=== PATIENT | female | born 1955 | race Caucasian/White ===

== ENCOUNTER → 2016-11-22 | Outpatient (CLI) | payer BC ==
--- NOTE | 2016-11-22 16:08 | MAMMOGRAPHY REPORT ---
BILATERAL DIGITAL SCREENING MAMMOGRAM TOMOSYNTHESIS WITH CAD: 11/22/2016 CLINICAL HISTORY: Routine screening. Patient has no complaints. TECHNIQUE: Breast tomosynthesis in addition to standard 2D mammography was performed. Current study was also evaluated with a Computer Aided Detection (CAD) system. COMPARISON: Comparison is made to exams dated: 11/19/2015 mammogram, 11/17/2014 mammogram, 07/17/2013 m ammogram, 06/12/2012 mammogram, 05/30/2012 mammogram, and 05/20/2011 mammogram - [facility] nter. BREAST COMPOSITION: There are scattered areas of fibroglandular density in both breasts. FINDINGS: No suspicious mass, architectural distortion or cluster of microcalcifications is seen. IMPRESSION: ACR BI-RADS CATEGORY 1: NEGATIVE There is no mammographic evidence of malignancy. A 1 year screening mammogram is recommended. The pa tient will receive written notification of the results. Approximately 10% of breast cancers are not detected with mammography. A negative mammographic report should not delay biopsy if a clinically suggestive mass is present. Sigrid garcia/oumou:11/22/2016 15:51:55 Rampman: Emiliana REYES)(Denis), [facility] letter sent: Normal 1/2 BI-RADS Code: ACR BI-RADS Category 1: Negative
== END | disposition home or self-care (01) ==
LOC: C.MAMM 07:08
PROVIDERS: ATTEND Family Medicine
DX: Z12.31 Encounter for screening mammogram for malignant neoplasm of breast (principal)

== ENCOUNTER → 2016-12-26 | Outpatient (CLI) | payer BC | END | disposition home or self-care (01) | LOC: C.RDSM 13:22 | PROVIDERS: ATTEND Physical Medicine & Rehabilitation Sports Medicine | DX: M17.12 Unilateral primary osteoarthritis, left knee (principal) ==

== ENCOUNTER 2018-08-22 04:42 | Inpatient (IN) ==
--- NOTE | 2018-07-25 16:21 | PAT Medication Instructions ---
Medication Instructions Date of Service July 25, 2018 Home Medications cholecalciferol (vitamin D3) 1 tab PO QAM cyanocobalamin (vitamin B-12) 500 mcg PO QAM glucosamine-chondroitin [Osteo 2 tab PO QAM rvhunrye-rpk-kxui-folic-vit K1 2 tab PO QAM venlafaxine [Effexor XR] 150 mg PO QAM STOP taking 2 weeks before surgery (or as soon as possible if surgery is within 2 weeks) glucosamine-chondroitin [Osteo 2 tab PO QAM DO NOT take the morning of surgery cholecalciferol (vitamin D3) 1 tab PO QAM cyanocobalamin (vitamin B-12) 500 mcg PO QAM bxzvpics-knr-xsui-folic-vit K1 2 tab PO QAM Take morning of surgery With a small sip of water, OTHERWISE NOTHING TO EAT OR DRINK AFTER MIDNIGHT: venlafaxine [Effexor XR] 150 mg PO QAM Other Notes If you have any questions please call us at [phone] or [phone] or [phone] or [phone]
--- NOTE | 2018-07-26 14:56 | Anesthesiology Consultation ---
Date of Service July 26, 2018 Assessment & Plan (1) Encounter for pre-operative examination: PCP: 07/27/18: medically cleared for surgery- "YES" Patient anxious re: SAB. She states she had ?epidural vs. spinal for childbirth and had subsequent "backaches" for years afterwords. She states she was told by an orthopedist that this was secondary to the neuraxial procedure. Discussed SAB vs. GA. To discuss further AM DOS. Chart Review Chart Review: Acceptable Risk for Surgery and Patient seen in Pre Admission Testing Teaching & Discussion Pre-Anesthesia Teaching/Discussion Notes: Instructed NPO after midnight before surgery,except medications with 15 cc of water. Medication instructions provided according to the PAT guidelines. History Surgery Operation Date: 08/22/18 07:00 Proposed Procedures p Left Total Knee Arthroplasty - Lucien Muro MD Height/Weight Height: 5 ft 1 in Weight: 102 kg Allergies Allergy/AdvReac Type Severity Reaction Status Date / Time adhesive tape AdvReac Unknown skin Verified 07/10/18 07:41 irritation Medications Home Medications Medication Instructions Recorded Confirmed Last Taken cholecalciferol (vitamin D3) 1 tab PO QAM 07/10/18 07/10/18 Unknown [Vitamin D3] cyanocobalamin (vitamin B-12) 500 mcg PO QAM 07/10/18 07/10/18 Unknown [Vitamin B-12] glucosamine-chondroitin [Osteo 2 tab PO QAM 07/10/18 07/10/18 Unknown Bi-Flex] zinymhqq-unt-hytx-folic-vit K1 2 tab PO QAM 07/10/18 07/10/18 Unknown [Centrum Chewables] venlafaxine [Effexor XR] 150 mg PO QAM 07/10/18 07/10/18 Unknown Past Medical History Medical History Anxiety Depression Morbid obesity Exercise / Class Metabolic Activity III < 4 Walking/Shop/Light housework Past Surgical History Surgical History Hx of Achilles tendon repair LEFT Hx of cervical discectomy Hx of gastric bypass 2005 Past Anesthesia History No Hx of Anesthesia Complications and No Family Hx of Anesthesia Complications History of PONV No Hx of PONV and No Hx of Motion Sickness Social History Smoking Status: Former smoker Do You Dip or Chew Tobacco: No Smoking End Date: QUIT 45 YEARS AGO Hx Alcohol Use: Yes Alcohol type: wine and hard liquor alcohol intake frequency: holidays/special occasions only Hx Substance Use: No Review of Systems Patient denies chest pain, shortness of breath, reflux, cough, wheezing, palpitations. Physical Exam Vital Signs VITALS BP 131/84 P 58 TEMP 97.7 SP02 99%RA RESP 18 PHYSICAL Full neck and c-spine range of motion. Full TMJ range of motion. TMD 3.5 finger breaths Mallampati Score 2 Dentition: upper front sides permanent bridge Lungs: clear throughout to auscultation Cardiac: regular rate and rhythm, no murmurs noted Spine: normal Carotid arteries: negative bruit Extremities: no edema Testing Electrocardiogram Date: 07/27/18 NSR at 63bpm. NS TWA. Chest X-Ray Date: 07/27/18 Findings: + NAD Laboratory Results 07/26/18 15:02 07/26/18 15:02 Blood Type A Positive 07/26/18 15:02 Antibody Screen NEGATIVE 07/26/18 15:02 PT 10.2 Seconds (9.0-12.0) 07/26/18 15:02 INR 1.0 (0.9-1.1) 07/26/18 15:02 APTT 26.2 Seconds (21.0-31.0) 07/26/18 15:02 Urine Color Yellow 07/26/18 Unknown Urine Appearance Clear (Clear) 07/26/18 Unknown Urine pH 5.0 (4.5-7.5) 07/26/18 Unknown Ur Specific [place] 1.024 (1.000-1.030) 07/26/18 Unknown Urine Protein Negative (Negative) 07/26/18 Unknown Urine Glucose (UA) Negative (Negative) 07/26/18 Unknown Urine Ketones Negative (Negative) 07/26/18 Unknown Urine Nitrite Negative (Negative) 07/26/18 Unknown Ur Leukocyte Esterase Trace (Negative) H 07/26/18 Unknown Urine WBC (Auto) 5-10 /hpf (0-5) H 07/26/18 Unknown Urine RBC (Auto) 0-4 /hpf (0-4) 07/26/18 Unknown U Hyaline Cast (Auto) 1-5 /lpf (0-5) 07/26/18 Unknown U Epithel Cells (Auto) >30 /lpf (0-5) H 07/26/18 Unknown Urine Bacteria (Auto) Negative (Negative) 07/26/18 Unknown
--- NOTE | 2018-07-26 15:29 | XRay Report ---
XR chest Pre-admission PA/Lat HISTORY: 63 years-old Female pat preoperative exam. No acute chest complaints COMPARISON: None available TECHNIQUE: PA and lateral views of the chest FINDINGS: Cardiomediastinal and hilar silhouettes are within normal limits. There is no pneumothorax, pleural e ffusion or overt pulmonary edema. Linear subsegmental atelectasis/scarring about the inferior segment lingula. Degenerative changes of the shoulders and spine. IMPRESSION: No acute process. The above report was generated using voice recognition software. It may contain grammatical, syntax o r spelling errors. Electronically signed by: Collin Pickett M.D. 07/26/2018 3:28 PM
[2018-07-26 15:59] LABS: Basophils # (auto) 0.04 K/uL (0-0.2); Basophils % (auto) 0.8 %; Eosinophils # (auto) 0.09 K/uL (0-0.5); Eosinophils % (auto) 1.8 %; Hematocrit (blood only) 39.6 % (37-47); Hemoglobin 13.7 g/dL (12.0-16.0); Immature Granulocytes # (auto) 0.01 K/uL (0.00-0.02); Immature Granulocytes % (auto) 0.2 %; Lymphocytes # (auto) 2.12 K/uL (1.2-3.4); Lymphocytes % (auto) 41.8 %; Mean Corpuscular Hgb Conc 34.6 g/dL (32-36); Mean Corpuscular Volume 89.6 fL (80-100); Mean Platelet Volume 11.3 fL (7.4-10.4); Monocytes # (auto) 0.48 K/uL (0.11-0.59); Monocytes % (auto) 9.5 %; Neutrophils # (auto) 2.33 K/uL (1.4-6.5); Neutrophils % (auto) 45.9 %; Platelet Count 237 K/uL (130-400); RDW Coefficient of Variation 13.9 % (11.5-14.5); RDW Standard Deviation 45.6 fL (36.4-46.3); Red Blood Count 4.42 M/uL (4.2-5.4); White Blood Count 5.07 K/uL (4.8-10.8)
[2018-07-26 16:05] LABS: Appearance Urine Clear (Clear); Bacteria Urine Automated Negative (Negative); Bilirubin Urine Negative (Negative); Blood Urine Negative (Negative); Color Urine Yellow; Epithelial Cell Urine Auto >30 /lpf (0-5); Glucose Urine UA Negative (Negative); Ketones Urine Negative (Negative); Leukocyte Esterase Urine Trace (Negative); Nitrite Urine Negative (Negative); Protein Urine Negative (Negative); RBC Urine Automated 0-4 /hpf (0-4); Specific Gravity Urine 1.024 (1.000-1.030); Urobilinogen Urine Negative (Negative)
[2018-07-26 16:07] LABS: BUN Creatinine Ratio 17.2 (10-20); Calcium 9.2 mg/dl (8.5-10.1); Creatinine Clr Calc Pharmacy 69.4 ml/min; Est GFR (African American) 77.8; Est GFR (Non-African American) 67.1; Potassium 3.9 mmol/L (3.5-5.1)
[2018-07-26 16:12] LABS: Partial Thromboplastin Time 26.2 Seconds (21.0-31.0); Prothrombin Time 10.2 Seconds (9.0-12.0)
[2018-07-26 16:18] LABS: Mucus Urine Present (None Prsent)
--- NOTE | 2018-08-03 22:30 | History and Physical Report ---
DATE OF ADMISSION: 08/22/2018 DATE OF SURGERY: 08/22/2018 CHIEF COMPLAINT: Left knee pain. HISTORY OF PRESENT ILLNESS: This is a 63-year-old white female who presents to the office with complaints longstanding history of bilateral knee pain, left greater than right. It has been ongoing for over 4 years. Pain has become worse with time. Pain is now affecting her ADLs. Worse with weightbearing. No catching or locking. No buckling. She does note frequent night pain, occasional effusions. She is frustrated at her lack of ability to do regular activity without pain. No numbness or tingling. She has tried activity modification, corticosteroid injections, viscosupplementation injections, and oral anti-inflammatories without lasting improvement. Preoperative imaging has been obtained. She elects to proceed with left total knee arthroplasty in hopes of alleviating her discomfort. PAST MEDICAL HISTORY: Significant for anxiety and depression, osteoarthritis, obesity, vitamin D deficiency, and elevated parathyroid hormone. PREVIOUS SURGERIES: Achilles tendon surgery x3, neck surgery, gastric bypass in 2003, low back surgery in 1979, colonoscopy in 2016. FAMILY HISTORY: Significant for osteoarthritis, breast cancer, depression, and heart disease. ALLERGIES: KNOWN ALLERGY TO ADHESIVE BANDAGES and EKG STICKERS. NKDA. CURRENT MEDICATIONS: Effexor XR 150 mg daily, multivitamin daily, Osteo Bi-Flex daily, vitamin B12 daily, vitamin D3 daily, Voltaren topical gel p.r.n. SOCIAL HISTORY: The patient is . No tobacco use, occasional ETOH use. REVIEW OF SYSTEMS: A total of 10 systems are reviewed and are significant only for above stated conditions. PHYSICAL EXAMINATION: GENERAL: Well-developed, well-nourished middle aged white female in no acute distress. Sitting in a chair. Alert and oriented. SKIN: Warm and dry with good turgor. No rashes or lesions. No ecchymosis or erythema. HEENT: Normocephalic, atraumatic. Eyes PERRLA, EOMI. Nares patent bilaterally without turbinate enlargement. Oropharynx without erythema or exudate. No lesions noted. Uvula midline. Oral mucosa moist. Fair dentition. Dental bridges are noted. LUNGS: Clear to auscultation bilaterally. No crackles, rhonchi or wheezing. Good air movement. ABDOMEN: Obese. Bowel sounds present x4, soft, nontender. No organomegaly. No masses. HEART: RRR. No MGR. MUSCULOSKELETAL: Left knee evaluation reveals no intra-articular effusion. Obese extremity. Varus alignment. Full terminal extension. Flexion to greater than 100 degrees. Strength is 5/5 with fair quad tone. There is focal discomfort with palpation of the medial and lateral joint lines. Medial was worst. She has peripatellar discomfort with palpation as well. Crepitus is palpable with motion. Stable collateral ligaments. No defect in the patellar tendon or quadriceps tendon. Ambulatory with an antalgic gait. NEUROLOGIC: Cranial nerves II through XII are intact. Gross sensation is intact across the lower extremities by soft touch. Peripheral pulses are 2+. DATA: Radiographic imaging previously obtained shows tricompartmental arthritis, worst in the medial compartment and varus alignment. Periarticular osteophytes and subchondral sclerosis are present. The bone scan previously obtained shows osteoarthritic changes in all compartments. IMPRESSION: Left knee end-stage degenerative joint disease. PLAN: Postoperative prescriptions for Percocet and Coumadin will be provided at discharge from the hospital. Anticipate discharge to home with home health services. She already has an appointment to see her PCP, Dr. Figueroa for medical clearance. Preoperative lab work, EKG, and chest x-ray have been ordered. She already has access to a walker and cane. Informed written consent will be obtained the morning of surgery.
[2018-08-22] MEDS ORDERED: CEFAZOLIN 2000MG 2,000 MG/15 ML SYR IV SCH (06:00)
[2018-08-22] MEDS ORDERED: TRANEXAMIC ACID 1,000 MG **IV Pre-op IV SCH (06:00)
[2018-08-22] MEDS ORDERED: ROPIVACAINE 0.5% HCL/PF 150 MG, BUPIVACAINE 0.5% MPF 30 ML, EPINEPHrine 0.15 MG, Ketoro... INFIL SCH (06:00)
[2018-08-22] MEDS ORDERED: LR 500ML BOLUS, THEN 15ML/HR IV SCH (06:00)
[2018-08-22] MEDS ORDERED: LR 60ML/HR IV SCH (06:00)
[2018-08-22] MEDS ORDERED: BUPIVACAINE 0.5 % 5 MG/1 ML PF 10ML VIAL ONE (06:27)
[2018-08-22] MEDS ORDERED: ROPIVACAINE 0.5% 5 MG/ML 30 ML VIAL ONE (06:27)
[2018-08-22] MEDS ORDERED: KETAMINE HCL INJ 50 MG/ML 10 ML VIAL ONE (06:28)
[2018-08-22] MEDS ORDERED: MIDAZOLAM HCL 1 MG/ML 2ML VIAL ONE (06:28)
[2018-08-22] MEDS ORDERED: PHENYLEPHRINE 100MCG/ML 5ML SYR IV PRN (06:30)
[2018-08-22] MEDS ORDERED: ePHEDrine sulfate 50 MG/ML AMP IV PRN (06:30)
[2018-08-22] MEDS ORDERED: fentaNYL citrate 100 MCG/2 ML VIAL IV PRN (06:30)
[2018-08-22] MEDS ORDERED: HYDROmorphone INJ 1 MG/ML SYRINGE IV PRN (06:30)
[2018-08-22] MEDS ORDERED: PROMETHAZINE HCL 12.5 MG in SODIUM CHLORIDE 0.9% 50 ML IV PRN (06:30)
[2018-08-22] MEDS ORDERED: ONDANSETRON INJ 2 MG/ML 2 ML VIAL IV PRN ×2 (06:30→09:08)
[2018-08-22] MEDS ORDERED: ATROPINE SULFATE 0.1 MG/ML 10ML SYR IV PRN (06:30)
--- NOTE | 2018-08-22 06:30 | History & Physical Bridge Note ---
Date of Service August 22, 2018 History & Physical Bridge Note I have examined the patient, reviewed the History & Physical and in the interval since the performance of the History & Physical I have noted the following changes of clinical significance: consent obtained.no changes noted
[2018-08-22] MEDS ORDERED: GLYCOPYRROLATE 0.2 MG/ML VIAL ONE (06:32)
[2018-08-22] MEDS ORDERED: ONDANSETRON INJ 2 MG/ML 2 ML VIAL ONE (06:32)
[2018-08-22] MEDS ORDERED: PROPOFOL IV EMULSION 10 MG/ML 20 ML VIAL IV ONE ×2 (06:32→08:07)
[2018-08-22] MEDS ORDERED: DEXAMETHASONE SOD INJ 4 MG/ML VIAL ONE (06:32)
[2018-08-22] MEDS ORDERED: LIDOCAINE HCL 2% 2 ML VIAL/AMP(20MG/ML) INFIL ONE (06:32)
[2018-08-22] MEDS ORDERED: POVIDONE-IODINE OP SOLN 30 ML BTL ONE (06:36)
[2018-08-22] MEDS ORDERED: ORTHO JOINT ANESTHETIC ONE (06:36)
[2018-08-22] MEDS ORDERED: CEFAZOLIN 250 MG/ML 1 GM VIAL ONE (07:06)
[2018-08-22] MEDS ORDERED: SODIUM CHLORIDE 0.9% INJ 10 ML VIAL ONE (07:06)
[2018-08-22] MEDS ORDERED: CEFAZOLIN 1000MG 1,000 MG/7.5 ML SYR IV ONE (07:32)
--- NOTE | 2018-08-22 08:23 | Post Operative Brief Note ---
Immediate Post Op Note v1 Date of Surgery August 22, 2018 Pre & Post Diagnosis Operation Date: 08/22/18 07:00 Pre-Op Diagnosis: Left Knee End-Stage Degenerative Joint Disease Post-Op Diagnosis: Left Knee End-Stage Degenerative Joint Disease Procedure Operation Date: 08/22/18 07:00 Actual Procedures p Left Total Knee Arthroplasty(Left) - Lucien Muro MD Surgeon Lucien Muro MD Guidance Adviser [facility] Estimated Blood Loss 25 Findings Consistent with Post-Op Diagnosis
--- NOTE | 2018-08-22 08:30 | Operative Report ---
Post Operative Report Pre & Post Diagnosis Operation Date: 08/22/18 07:00 Pre-Op Diagnosis: Left Knee End-Stage Degenerative Joint Disease Post-Op Diagnosis: Left Knee End-Stage Degenerative Joint Disease Procedure Operation Date: 08/22/18 07:00 Actual Procedures p Left Total Knee Arthroplasty(Left) - Lucien Muro MD Surgeon TANISHA Muro MD Senior Cost Analyst [employer] Estimated Blood Loss 25 Findings Consistent with Post-Op Diagnosis Specimens see operative report Drains none Complications none Disposition Accompanied Patient To Recovery: Yes Disposition: Recovery Room Indications This 63-year-old white female presented to the office with complaints of intractable left knee pain. She had tried conservative care, including activity modification, injection therapy, and oral anti-inflammatories, without improvement. She elected to proceed with surgical intervention after being educated about potential risks and outcomes. Preoperative imaging was obtained. Description of Procedure Patient was administered a spinal anesthetic and then was taken to the operating room where she received sedation. She was prepped and draped in the usual s terile fashion. Please see Dr. Muro's operative report for specifics of the procedure. I was present for the entire case from initial patient positioning through final. Assistance was provided in tissue retraction, hemostasis, trial implant placement, final implant placement, and final wound closure. Patient was taken to the recovery room in satisfactory condition. I attest to the content of the Intraoperative Record and any orders documented therein. Any exceptions are noted below.
--- NOTE | 2018-08-22 08:52 | Anesthesiology Progress Note ---
Date of Service August 22, 2018 Anesthesia Post Procedure Vital Signs Vital Signs: Temp Pulse Pulse Resp BP BP Pulse Ox 08/22/18 08:45 72 19 110/74 98 08/22/18 08:35 76 14 113/73 100 08/22/18 08:29 36.6 C 77 18 109/78 96 08/22/18 05:38 36.7 C 82 20 140/97 97 Pain Intensity Left Knee: Pain Intensity: 0 Transfer of Care Handoff Completed per policy Notes Mental Status: alert / awake / arousable Patient Amnestic to Procedure: Yes Nausea / Vomiting: adequately controlled Pain: adequately controlled Airway Patency, RR, SpO2: stable & adequate BP & HR: stable & adequate Neuraxial Anesthesia: was administered and sensory block is resolving Anesthetic Complications: no major complications apparent Notes: Awake, doing well, VSS.
--- NOTE | 2018-08-22 09:02 | XRay Report ---
XR knee LT 2V routine CLINICAL HISTORY: Surgical Post Op postoperative COMPARISON: None. DISCUSSION: Anatomic alignment post total left knee arthroplasty. Good contact between prosthetic and underlying bone. Expected postoperative soft tissue change. IMPRESSION: Anatomic alignment post total left knee arthroplasty. The above report was generated using voice recognition software. It may contain grammatical, syntax or spelling errors. Electronically signed by: Tony Montano M.D. 08/22/2018 9:01 AM
--- NOTE | 2018-08-22 09:03 | Operative Report ---
DATE OF OPERATION: 08/22/2018 PREOPERATIVE DIAGNOSIS: Osteoarthritis, left knee. POSTOPERATIVE DIAGNOSIS: Osteoarthritis, left knee. SURGEON: Dr. Muro and Mark Espino PA-C. OPERATION PERFORMED: Cemented left total knee replacement. PERIOPERATIVE SITUATION: The patient has been followed for years with bilateral knee osteoarthritis with physical exam, x-ray and MRI scans showing advancing disease with significant disease in both the medial, lateral and patellofemoral compartments. At this point in time, she has failed conservative management and is requesting total knee replacement. SURGEON: Dr. Muro. CRITICAL CARE PARAMEDIC: Mark Espino PA-C. No resident or fellow available. DESCRIPTION OF PROCEDURE: The patient appropriately identified, site verified, consent verified. Antibiotics confirmed as being given. The left lower extremity was prepped and draped in usual routine fashion with tourniquet inflated to 300 mmHg after exsanguination of limb with a rubber Esmarch bandage. The anterior exposure of the femur was then carried out. Blunt dissection carried down to the fascia. This joint was then opened, arthrotomy performed. Synovectomy completed, osteophytes resected. Menisci resected. Cruciates resected after the drill hole made on the distal femur, tibia subluxated, bone remaining remnants of menisci excised. Distal femur resected 12 mm, proximal tibia resected 4 mm, the extension gap was excellent. The femur was sized between a 2.5 and a 2, was measured 2.5, cut 2.5. There was no notching. There was no major overstuffing from anterior to posterior. Flexion gap was then checked. It was excellent. Box cut was then made and the size 2.5 fit well. The tibia was then broached and reamed to 2.5 and reduction with a size 10 mm posterior cruciate substituting 2.5 tray revealed the knee to be very stable. The patella tracked slightly laterally. It should be mentioned there was fair amount of incarceration to the distal extensor mechanism. This was all appropriately released. Once this was carried out, the patella tracked well. Patella was sized to a 38. Appropriate resection made leaving 15 mm. Seating holes made and the trial tracked well. The knee was then injected with Orthomix 2 syringes posteriorly and all around the margin of the incision and then the musculature and capsule around the joint. Once this was all performed, all the trial implants were removed. The wound irrigated with Betadine and Pulsavac and then the permanent cemented in position, tibia, femur and patella in that order. After 12 minutes, the tourniquet deflated. Minor bleeding points controlled with the electrocautery. Estimated blood loss was only about 25 mL when the tourniquet was deflated. Once the cement was all firm 14 minutes, the trial spacer was removed. There was no cement removal that was required. The knee was irrigated with Betadine and then the permanent liner seated. The knee reduced and then closed in 30-40 degrees of flexion with #2 Vicryl for the capsule, 2-0 Vicryl for the subcutaneous layer and stainless steel clips for skin. The patient had a high BMI. She will have a Prevena, it is medically necessary. DVT prophylaxis with Coumadin. EBL 25 mL. Pathology pending on bone. SUMMARY OF IMPLANTS: Size 2.5 posterior cruciate substituting femur, size 2.5 mobile bearing tray tibia, size 2.5 spacer 10 mm thick posterior cruciate substituting oval dome 3 peg patella size 38 and 2 bags of [place] G cement. I attest to the content of the Intraoperative Record and any orders documented therein. Any exception s are noted below.
[2018-08-22] MEDS ORDERED: DiphenhydrAMINE HCL 50 MG/ML VIAL IV PRN (09:08)
[2018-08-22] MEDS ORDERED: HYDROmorphone INJ 0.5 MG/0.5 ML SYR IV PRN (09:08)
[2018-08-22] MEDS ORDERED: ALUMINUM/MAGNESIUM SUSP 30 ML UDC PO PRN (09:08)
[2018-08-22] MEDS ORDERED: NALOXONE HCL 0.4 MG/1 ML VIAL/CARP IV PRN (09:08)
[2018-08-22] MEDS ORDERED: OXYCODONE HCL IR 5 MG TAB (IMMEDIATE RELEASE) PO PRN (09:08)
[2018-08-22] MEDS ORDERED: MAGNESIUM HYDROXIDE SUSP 30 ML UDC PO PRN (09:08)
[2018-08-22] MEDS ORDERED: METOCLOPRAMIDE HCL INJ 5 MG/ML 2 ML VIAL IV PRN (09:08)
[2018-08-22] MEDS ORDERED: BISACODYL 10 MG SUPP PR PRN (09:08)
[2018-08-22] MEDS ORDERED: SODIUM CHLORIDE 0.9% 1000ML 1,000 ML IV SCH (09:30)
[2018-08-22] MEDS: MULTIVITAMIN TAB PO SCH (10:19)
[2018-08-22] MEDS: KETOROLAC 30 MG/ML VIAL IV SCH ×3 (10:19→21:37)
[2018-08-22] MEDS: VENLAFAXINE HCL XR 150 MG CAPXR PO SCH (10:19)
[2018-08-22] MEDS: DOCUSATE SODIUM 100 MG CAP PO SCH ×2 (10:19→21:37)
[2018-08-22] MEDS: ORTHO WARFARIN NOMOGRAM SCH (10:32)
--- NOTE | 2018-08-22 11:37 | Progress Note ---
DATE: 08/22/2018 SUBJECTIVE: Postop check: Status post left total knee replacement. The patient is sitting up in a chair having no issues, eating breakfast. She denies nausea, vomiting, chest pain, shortness of breath, fever, or chills. Neurovascular check: Femoral sciatic nerve is normal. Wound dressing clean, dry, and intact. Postop x-rays look excellent. ASSESSMENT: Doing well. Continue with postoperative care in pathway, physical therapy, occupational therapy, discharge tomorrow.
--- NOTE | 2018-08-22 12:23 | Discharge Summary ---
CHIEF COMPLAINT: Left knee pain. HISTORY OF PRESENT ILLNESS: The patient is admitted for elective left total knee replacement. Hospital course has been uneventful. She is up eating and drinking, voiding and no issues. Pain is well managed. Vital signs are stable. She is afebrile. Postop x-rays look excellent. The patient is 63 years old. She has had chronic knee pain and has been admitted for an elective knee replacement. PAST MEDICAL HISTORY: Remarkable for anxiety, depression, osteoarthritis, obesity, vitamin D deficiency and elevated parathyroid hormone. PAST SURGICAL HISTORY: Include multiple Achilles tendon surgeries, neck surgery, gastric bypass, low back surgery, colonoscopies. FAMILY HISTORY: Remarkable for osteoarthritis, breast cancer, depression, heart disease. ALLERGIES: ADHESIVE BANDAGES AND EKG STICKERS. No drug allergies. PREADMISSION MEDICATIONS: Include Effexor, multivitamin, Osteo Bi-Flex, vitamin B, vitamin D, Voltaren topical gel. She will discontinue the topical gel. She will continue all of her other medication. She will have p.r.n. pain medications, see prescription and Coumadin to keep INR 1.8-2.2, discharged on 4 mg if INR is 1.5 or less. SOCIAL HISTORY: Reveals she is . No tobacco or alcohol use. REVIEW OF SYSTEMS: Reveals no chest pain, shortness of breath, fever, chills, nausea, vomiting or headache. ASSESSMENT AND PLAN: Doing well status post left total knee replacement. We will discharge to home tomorrow. Will follow up in 2 weeks for staple removal. See Coumadin recommendations above.
[2018-08-22] MEDS: ACETAMINOPHEN 500 MG TAB PO SCH ×2 (14:16→21:37)
[2018-08-22] MEDS: CEFAZOLIN 2000MG 2,000 MG/15 ML SYR IV SCH ×2 (14:16→22:32)
[2018-08-22] MEDS ORDERED: TRANEXAMIC ACID 1,000 MG in 0.9 % SODIUM CHLORIDE 100 ML IV SCH (14:30)
[2018-08-22] MEDS ORDERED: WARFARIN SOD 5 MG TAB PO SCH (16:00)
[2018-08-22] MEDS ORDERED: SENNA 8.6 MG TAB PO SCH (21:00)
[2018-08-23] MEDS: ACETAMINOPHEN 500 MG TAB PO SCH (05:18)
[2018-08-23] MEDS: KETOROLAC 30 MG/ML VIAL IV SCH (05:18)
[2018-08-23 06:41] LABS: Hematocrit (blood only) 32.7 % (37-47); Hemoglobin 11.3 g/dL (12.0-16.0); Mean Corpuscular Hgb Conc 34.6 g/dL (32-36); Mean Corpuscular Volume 88.4 fL (80-100); Mean Platelet Volume 10.8 fL (7.4-10.4); Platelet Count 181 K/uL (130-400); RDW Standard Deviation 45.4 fL (36.4-46.3); White Blood Count 7.95 K/uL (4.8-10.8)
[2018-08-23 06:51] LABS: INR 1.2 (0.9-1.1); Prothrombin Time 12.4 Seconds (9.0-12.0)
[2018-08-23 07:19] LABS: BUN Creatinine Ratio 19.1 (10-20); Calcium 8.4 mg/dl (8.5-10.1); Creatinine Clr Calc Pharmacy 59.6 ml/min; Est GFR (African American) 64.7; Est GFR (Non-African American) 55.8; Potassium 3.9 mmol/L (3.5-5.1)
[2018-08-23] MEDS: DOCUSATE SODIUM 100 MG CAP PO SCH (07:21)
[2018-08-23] MEDS: MULTIVITAMIN TAB PO SCH (07:21)
[2018-08-23] MEDS: VENLAFAXINE HCL XR 150 MG CAPXR PO SCH (07:21)
[2018-08-23] MEDS ORDERED: dexAMETHasone 10 MG in SYRINGE 0 ML IV SCH (08:00)
[2018-08-23] MEDS: ORTHO WARFARIN NOMOGRAM SCH (08:26)
--- NOTE | 2018-08-23 09:56 | Orthopedic Progress Note ---
Date of Service August 23, 2018 Assessment & Plan (1) S/P total knee arthroplasty: PT/OT this morning. Dressing was changed by me this morning. Prevena wound VAC was applied. EMY hose were also applied. Ready for discharge to home this morning. She will have outpatient laboratory services. Patient did request a prescription for Tylenol 3 instead of Percocet. She states it works better. This was provided. Prescription for Coumadin 2mg was also provided. Follow-up in the office on August 30 for removal of the wound VAC. She also has an appointment on the staple removal. Continue with ice, elevation, and use of EMY hose for edema control. Call the office with any other concerns. Subjective Patient is seen in her room this morning. She denies any pain. States she has not required any pain medication other than Tylenol. She has been up out of bed and has been ambulating in the hallway. She feels ready to no other complaints at this point. No chest pain, shortness of breath, nausea, vomiting, or abdominal pain. She states she has less knee pain now than prior to surgery. Review of Systems Review of Systems: Unchanged from initial admission. Physical Exam Physical Exam: General: Well-developed, well-nourished, middle-aged white female, in no acute distress. Sitting in a chair. Alert and oriented. She was just ambulating in the [place] with her walker. Skin: Dressings are intact. Upon removal, healing surgical incision on the left knee. [place] are intact. Wound edges are well approximated. Scant drainage on her dressings. No active bleeding. Expected postoperative ecchymosis and edema. Musculoskeletal: Patient has been ambulatory in the [place] using her walker and knee immobilizer. She is able to perform a straight leg raise. Flexion to around 75 degrees when seated. Intact motor function to the ankle and toes. Neurologic: Gross sensation is intact across the left leg by soft touch. Peripheral pulses are 2+. INR is 1.2 this morning. H&H are stable at 11.3 and 32.7. Results & Data Vital Signs (Past 12 Hours) Vital Signs Temp Pulse Pulse Resp BP BP Pulse Ox 08/23/18 07:37 36.7 C 64 19 126/68 98 08/23/18 04:17 36.8 C 55 L 16 109/71 97 08/22/18 23:15 36.8 C 74 18 103/60 93
--- NOTE | 2018-08-23 10:17 | Anesthesiology Progress Note ---
Date of Service August 23, 2018 Anesthesia Post Procedure Vital Signs Vital Signs: Temp Pulse Pulse Resp BP BP Pulse Ox 08/23/18 07:37 36.7 C 64 19 126/68 98 08/23/18 04:17 36.8 C 55 L 16 109/71 97 08/22/18 23:15 36.8 C 74 18 103/60 93 08/22/18 16:14 36.6 C 65 16 113/72 94 08/22/18 12:00 65 16 122/79 99 08/22/18 11:27 60 16 126/74 99 08/22/18 10:23 57 L 16 132/78 98 Pain Intensity Left Knee: Pain Intensity: 0 Notes Mental Status: alert / awake / arousable and participated in evaluation Patient Amnestic to Procedure: Yes Nausea / Vomiting: adequately controlled Pain: adequately controlled Airway Patency, RR, SpO2: stable & adequate BP & HR: stable & adequate Hydration State: stable & adequate Neuraxial Anesthesia: was administered and sensory block resolved Anesthetic Complications: no major complications apparent
[2018-08-23] MEDS ORDERED: WARFARIN SOD 5 MG TAB PO SCH (16:00)
== END 2018-08-23 12:04 | disposition home or self-care (01) | DRG 470 ==
LOC: ASU 04:42 → 3E 09:23

== ENCOUNTER 2018-08-27 09:27 | Inpatient (IN) ==
[2018-08-27] MEDS ORDERED: SODIUM CHLORIDE 0.9% 500 ML IV SCH (09:45)
[2018-08-27 10:19] LABS: Hematocrit (blood only) 20.5 % (37-47); Hemoglobin 7.1 g/dL (12.0-16.0); Mean Corpuscular Hgb Conc 34.6 g/dL (32-36); Mean Corpuscular Volume 89.1 fL (80-100); Mean Platelet Volume 10.9 fL (7.4-10.4); Platelet Count 226 K/uL (130-400); RDW Coefficient of Variation 14.1 % (11.5-14.5); RDW Standard Deviation 45.8 fL (36.4-46.3); White Blood Count 11.02 K/uL (4.8-10.8)
[2018-08-27 10:23] LABS: Albumin Level 2.2 gm/dl (3.4-5.0); Calcium 7.9 mg/dl (8.5-10.1); Creatinine Clr Calc Pharmacy 56.6 ml/min; Est GFR (African American) 59.3; Est GFR (Non-African American) 51.1; Potassium 4.4 mmol/L (3.5-5.1)
[2018-08-27 10:26] LABS: Albumin Globulin Ratio 0.7 (0.9-2); Bilirubin,Total 0.6 mg/dl (0.2-1); Partial Thromboplastin Ratio 1.3; Partial Thromboplastin Time 35.4 Seconds (21.0-31.0); Prothrombin Time 65.3 Seconds (9.0-12.0); Total Protein 5.2 gm/dl (6.4-8.2)
[2018-08-27 10:30] LABS: Basophils # (auto) 0.01 K/uL (0-0.2); Basophils % (auto) 0.1 %; Eosinophils # (auto) 0.01 K/uL (0-0.5); Eosinophils % (auto) 0.1 %; Immature Granulocytes # (auto) 0.12 K/uL (0.00-0.02); Immature Granulocytes % (auto) 1.1 %; Lymphocytes # (auto) 1.55 K/uL (1.2-3.4); Lymphocytes % (auto) 14.1 %; Monocytes # (auto) 0.55 K/uL (0.11-0.59); Neutrophils # (auto) 8.78 K/uL (1.4-6.5); Neutrophils % (auto) 79.6 %; RBC Morphology Unremarkable
[2018-08-27] MEDS ORDERED: SODIUM CHLORIDE 0.9% 250 ML IV PRN ×2 (10:33→14:29)
[2018-08-27 10:36] LABS: INR 7.4 (0.9-1.1)
[2018-08-27] MEDS ORDERED: PROTHROMBIN COMP CONC- KCENTRA 5,000 UNITS in SYRINGE 0 ML IV STA (10:39)
[2018-08-27] MEDS ORDERED: PHYTONADIONE 10 MG in SODIUM CHLORIDE 0.9% 50 ML IV ONE (10:40)
[2018-08-27] MEDS ORDERED: FAMOTIDINE 20MG IV PUSH 20 MG/5 ML SYR IV STA (10:45)
--- NOTE | 2018-08-27 11:09 | Emergency Department Note ---
Entered by Lissa Alaniz acting as a scribe for Guero Field DO History of Present Illness General Time Seen by Provider: 08/27/18 09:36 Source: patient and other (nursing staff) History of Present Illness Provider complaint: rectal bleeding Onset (ago): day(s) (last night) Location: buttocks (rectum) Quality: + other (bleeding) Associated symptoms: + weakness and + other (dizzy); no nausea/vomiting The patient is a 63 year old female who presents to the Emergency Department with complaints of rectal bleeding beginning last night. Per nursing staff, the patient had right knee surgery 5 days ago and is on Coumadin. She states that she was placed on the Coumadin after the knee surgery and states that she stopped it yesterday. The patient states that yesterday she was dizzy and weak after she started to pass large clots. The patient states that she got so weak that she was unable to stand. The patient reports that she had the rectal bleeding before the weakness. The patient denies a history of bleeding issues or blood transfusions. The patient denies any nausea or vomiting. She denies a history of diabetes, hypertension, and a heart attack. Home Medications Home Medications Medication Instructions Recorded Confirmed Type Centrum Chewables 2 tab PO QAM 07/10/18 08/27/18 History cholecalciferol (vitamin D3) 1 tab PO QAM 07/10/18 08/27/18 History [Vitamin D3] cyanocobalamin (vitamin B-12) 500 mcg PO QAM 07/10/18 08/27/18 History [Vitamin B-12] venlafaxine [Effexor XR] 150 mg PO QAM 07/10/18 08/27/18 History acetaminophen-codeine 2 tab PO Q6H PRN #24 tab 08/23/18 08/27/18 Rx [Tylenol-Codeine #3] acetaminophen [Tylenol Extra 500 mg PO Q6H PRN 08/27/18 08/27/18 History Strength] warfarin 2 mg PO BID 08/27/18 08/27/18 History Allergies Allergy/AdvReac Type Severity Reaction Status Date / Time adhesive tape AdvReac Unknown skin Verified 08/27/18 10:18 irritation Past Med/Surg History Medical History Anxiety Depression Morbid obesity Surgical History Hx of Achilles tendon repair LEFT Hx of cervical discectomy Hx of gastric bypass 2006 Social History Preferred Language: Malay Communication Ability: Effective Beliefs That Will Affect Care: None Current Living Situation: Spouse Feels Safe at Home: Yes Smoking Status: Former smoker Hx Alcohol Use: Yes Alcohol type: wine and hard liquor Hx Substance Use: No Review of Systems See HPI for pertinent positives & negatives. and A total of 10 systems reviewed and were otherwise negative Physical Exam Vital Signs Vital Signs - 24 hr 08/27/18 09:30 08/27/18 09:35 08/27/18 09:57 Temperature 36.7 C Temperature Source Oral Sepsis Recent Fever Within 48 Hours No Sepsis Action Taken by Nursing No Action Required Pulse Rate - Lying 93 H Pulse Rate - Sitting 121 H Pulse Rate 90 102 H Pulse Rate from SpO2 Sensor Pulse Rhythm Regular Pulse Strength Normal Respiratory Rate 20 18 Respiratory Effort / Characteristics Non-Labored Spontaneous Respiratory Depth Normal Blood Pressure - Lying 109/90 Blood Pressure - Sitting 91/70 L Blood Pressure 107/63 107/63 Blood Pressure Mean 77 77 Blood Pressure Position Sitting Pulse Oximetry 98 Oxygen Delivery Method Room Air 08/27/18 09:59 08/27/18 10:01 Temperature Temperature Source Sepsis Recent Fever Within 48 Hours Sepsis Action Taken by Nursing Pulse Rate - Lying Pulse Rate - Sitting Pulse Rate Pulse Rate from SpO2 Sensor 93 H 121 H Pulse Rhythm Pulse Strength Respiratory Rate 17 22 Respiratory Effort / Characteristics Respiratory Depth Blood Pressure - Lying Blood Pressure - Sitting Blood Pressure 109/90 91/70 L Blood Pressure Mean 96 77 Blood Pressure Position Pulse Oximetry 100 94 Oxygen Delivery Method CONSTITUTIONAL/VITAL SIGNS: Reviewed / noted above. GENERAL: Non-toxic in appearance. INTEGUMENTARY: Warm, dry, and [place]. HEAD: Normocephalic. EYES: without scleral icterus or trauma. ENT/OROPHARYNX: clear and moist. LYMPHADENOPATHY/NECK: Is supple without lymphadenopathy or meningismus. RESPIRATORY: Lungs clear and equal. CARDIOVASCULAR: Regular rate and rhythm. GI/ABDOMEN: Soft and nontender. No organomegaly or pulsatile mass. No rebound or guarding. Normal bowel sounds. EXTREMITIES: Warm and well perfused. BACK: No CVA tenderness. NEUROLOGICAL: Intact without focal deficits. PSYCHIATRIC: normal affect. RECTAL: Gross rectal bleeding on rectal exam. MUSCULOSKELETAL: Normally developed with good muscle tone. Wound vac overlying the left knee after surgery. No evidence of redness or infection. Course 0925: The patient was evaluated in room B2. A history and physical were p erformed. 1033: I updated the patient that she is anemic. She agreed to a blood transfusion and verbalized agreement to the treatment plan. 1048: I discussed the patient's case with Faith Worthington admitting to Dr. Glasgow who will evaluate the patient for further management. Consultations Consultation #1: Faith Worthington Time: 10:48 Administered Medications Discontinued Medications Sodium Chloride (Nss) 500 mls @ 999 mls/hr IV .Q31M SEVERO Stop: 08/27/18 10:15 Last Infusion: 08/27/18 10:22 Dose: 0 mls/hr Documented by: [id number] Admin: 08/27/18 09:50 Dose: 999 mls/hr Documented by: [id number] Medical Decision Making Differential Diagnosis Differential diagnosis: Etiologies such as esophagitis, variceal bleed, [place], [place] tear, gastritis, peptic ulcer disease, AVM, inflammatory bowel disease, ischemia, diverticulosis, colitis, malignancy, coagulopathy, thrombocytopenia, fissure, hemorrhoid, epistaxis , as well as others were entertained. Medical Records Attestation: I reviewed the patient's medical records. Home Medications Current Medication List: was personally reviewed by me Laboratory Data Attestation: I reviewed the patient's lab results. Result diagrams: 08/27/18 09:55 08/27/18 09:55 Lab Results 08/27/18 08/27/18 08/27/18 Range/Units 09:55 09:55 09:55 WBC 11.02 H (4.8-10.8) K/uL RBC 2.30 L (4.2-5.4) M/uL Hgb 7.1 L (12.0-16.0) g/dL Hct 20.5 L* (37-47) % MCV 89.1 (80-100) fL MCH 30.9 (25-34) pg MCHC 34.6 (32-36) g/dL RDW Std Deviation 45.8 (36.4-46.3) fL RDW Coeff of Lang 14.1 (11.5-14.5) % Plt Count 226 (130-400) K/uL MPV 10.9 H (7.4-10.4) fL Immature Gran % (Auto) 1.1 % Neut % (Auto) 79.6 % Lymph % (Auto) 14.1 % [place] % (Auto) 5.0 % Eos % (Auto) 0.1 % Baso % (Auto) 0.1 % Immature Gran # (Auto) 0.12 H (0.00-0.02) K/uL Neut # (Auto) 8.78 H (1.4-6.5) K/uL Lymph # (Auto) 1.55 (1.2-3.4) K/uL [place] # (Auto) 0.55 (0.11-0.59) K/uL Eos # (Auto) 0.01 (0-0.5) K/uL Baso # (Auto) 0.01 (0-0.2) K/uL RBC Morphology Unremarkable PT 65.3 H (9.0-12.0) Seconds INR 7.4 H* (0.9-1.1) APTT 35.4 H (21.0-31.0) Seconds PTT Ratio 1.3 Sodium 143 (136-145) mmol/L Potassium 4.4 (3.5-5.1) mmol/L Chloride 112 H (98-107) mmol/L Carbon Dioxide 22 (21-32) mmol/L Anion Gap 9.0 (3-11) BUN 49 H (7-18) mg/dl Creatinine 1.14 (0.6-1.2) mg/dl Est Cr Clr Drug Dosing 56.6 ml/min Est GFR ( Amer) 59.3 Est GFR (Non-Af Amer) 51.1 BUN/Creatinine Ratio 43.0 H (10-20) Glucose 206 H (70-99) mg/dl Calcium 7.9 L (8.5-10.1) mg/dl Total Bilirubin 0.6 (0.2-1) mg/dl AST 18 (15-37) U/L ALT 14 (12-78) U/L Alkaline Phosphatase 74 (45-117) U/L Total Protein 5.2 L (6.4-8.2) gm/dl Albumin 2.2 L (3.4-5.0) gm/dl Globulin 3.0 (2.5-4.0) gm/dl Albumin/Globulin Ratio 0.7 L (0.9-2) Lipase 167 (73-393) U/L POC Stool Occult Blood (Negative) Blood Type Antibody Screen Crossmatch 08/27/18 08/27/18 Range/Units 09:55 10:00 WBC (4.8-10.8) K/uL RBC (4.2-5.4) M/uL Hgb (12.0-16.0) g/dL Hct (37-47) % MCV (80-100) fL MCH (25-34) pg MCHC (32-36) g/dL RDW Std Deviation (36.4-46.3) fL RDW Coeff of Lang (11.5-14.5) % Plt Count (130-400) K/uL MPV (7.4-10.4) fL Immature Gran % (Auto) % Neut % (Auto) % Lymph % (Auto) % [place] % (Auto) % Eos % (Auto) % Baso % (Auto) % Immature Gran # (Auto) (0.00-0.02) K/uL Neut # (Auto) (1.4-6.5) K/uL Lymph # (Auto) (1.2-3.4) K/uL [place] # (Auto) (0.11-0.59) K/uL Eos # (Auto) (0-0.5) K/uL Baso # (Auto) (0-0.2) K/uL RBC Morphology PT (9.0-12.0) Seconds INR (0.9-1.1) APTT (21.0-31.0) Seconds PTT Ratio Sodium (136-145) mmol/L Potassium (3.5-5.1) mmol/L Chloride (98-107) mmol/L Carbon Dioxide (21-32) mmol/L Anion Gap (3-11) BUN (7-18) mg/dl Creatinine (0.6-1.2) mg/dl Est Cr Clr Drug Dosing ml/min Est GFR ( Amer) Est GFR (Non-Af Amer) BUN/Creatinine Ratio (10-20) Glucose (70-99) mg/dl Calcium (8.5-10.1) mg/dl Total Bilirubin (0.2-1) mg/dl AST (15-37) U/L ALT (12-78) U/L Alkaline Phosphatase (45-117) U/L Total Protein (6.4-8.2) gm/dl Albumin (3.4-5.0) gm/dl Globulin (2.5-4.0) gm/dl Albumin/Globulin Ratio (0.9-2) Lipase (73-393) U/L POC Stool Occult Blood Positive A (Negative) Blood Type A Positive Antibody Screen NEGATIVE Crossmatch See Detail ECG Data Attestation: I personally reviewed and interpreted this ECG as follows: Indication: other (bleeding) Rate (beats per minute): 98 Rhythm: normal sinus Findings: no PAC, no PVC, no ST elevation and no ectopy Blood Pressure Blood Pressure Findings: Low blood pressure Blood Pressure Disposition: further management by hospitalist SKY Noel This is a 63-year-old female who presents to the ED with a chief complaint of GI bleeding. The patient had a left total knee surgery performed on August 22. She was placed on Coumadin for DVT prophylaxis. The patient states that she developed GI bleeding yesterday evening and began feeling dizzy and weak after that. She came to the ED for evaluation this morning for continued bleeding. Her physical exam reveals slightly low blood pressure. She has gross dark blood on rectal exam. Her hemoglobin is 7.1. Her INR 7.4. BUN is 49. Other lab test are noted above. The patient does have a normal sinus rhythm without ischemic changes on her EKG. The patient was treated with some IV fluids. The nurse was instructed to initiate a total of 2 IVs. She was given 1 unit of blood IV. Consent has been signed. The patient was also given IV K Centra and IV vitamin K to reverse the INR and IV Pepcid was also administered as the Protonix is on back order. I spoke with the hospitalist, who will see the patient for further inpatient evaluation and care. Impression & Plan GI bleed, Anemia, Acute hypotension Critical Care Time I have personally spent 35 minutes of critical care time in the direct management of this patient. This includes bedside care, interpretation of diagnostic studies, and testing, discussion with consultants, patient, and family members, and other required patient management activities. This 35 minutes is in excess of all separately billable procedures. Critical Care Time: Yes Total Critical Care Time: 35 Discharge Plan Visit Data ED Provider: Guero Field Discharge Problem: GI bleed, Anemia, Acute hypotension Patient Disposition: Being Evaluated by Hospitalist Prescriptions Prescriptions: No Action venlafaxine [Effexor XR] 150 mg Capsule,Extended Release 24hr 150 mg PO QAM RF: 0 cyanocobalamin (vitamin B-12) [Vitamin B-12] 500 mcg Tablet 500 mcg PO QAM RF: 0 cholecalciferol (vitamin D3) [Vitamin D3] 400 unit Tablet 1 tab PO QAM RF: 0 Centrum Chewables 8 mg-400 mcg- 10 mcg Tablet,Chewable 2 tab PO QAM RF: 0 acetaminophen-codeine [Tylenol-Codeine #3] 300-30 mg tablet 2 tab PO Q6H PRN (Reason: pain) Qty: 24 RF: 0 acetaminophen [Tylenol Extra Strength] 500 mg Tablet 500 mg PO Q6H PRN (Reason: Pain) RF: 0 warfarin 2 mg tablet 2 mg PO BID RF: 0 Referrals Referrals: Jodi Avila PA-C [Primary Care Provider] - Discharge Problem: GI bleed Qualifiers: GI bleed type/associated pathology: unspecified gastrointestinal hemorrhage type Qualified Code(s): K92.2 - Gastrointestinal hemorrhage, unspecified Anemia Qualifiers: Anemia type: unspecified type Qualified Code(s): D64.9 - Anemia, unspecified The scribe's documentation has been prepared under my direction and personally reviewed by me in its entirety. I confirm that the note above accurately reflects all work, treatment, procedures, and medical decision making performed by me.
--- NOTE | 2018-08-27 12:07 | History & Physical Report ---
Date of Service August 27, 2018 Assessment & Plan (1) GI bleed: Several episodes of rectal bleeding with dark stool and clots. Clinically orthostatic. Hgb 7, compared to 11 last week. Could have upper or lower source of bleeding. S/P Slim-en-Y gastric bypass. History of colonic polyps, last colonoscopy [address] Kemp. On warfarin with supra therapeutic INR of 7. No ASA, NSAID's, or other gastric irritants. IV pantoprazole bolus / infusion. Transfuse to maintain adequate H/H- first unit of pRBC's ordered in ED. Reverse / monitor INR- vitamin K and K-Centra ordered in ED. Monitor H/H and INR q 4 hrs until stable. Consult GI. (2) Acute blood loss anemia: As noted above. (3) Warfarin-induced coagulopathy: As noted above. (4) S/P total knee arthroplasty: Doing well postoperatively until GI bleed. Ortho notified of admission. (5) Advance directive discussed with patient: Advanced directives discussed with patient and her family. She has a living will. She would like resuscitation attempted in the event of a cardiopulmonary arrest if there is a reasonable chance of a meaningful recovery. She does not want extraordinary measures initiated or continued if prognosis is grim. (6) DVT prophylaxis: No anticoagulants because of GI bleeding. SCD's. Ambulate when able. (7) Discharge planning issues: Anticipated discharge to home. Medical follow-up with Jdoi Avila PA-C. Ortho follow-up with Dr. Muro. History of Present Illness Chief Complaint: rectal bleeding Primary Care Provider: Jodi Avila PA-C 63 YO female followed by Jodi Avila PA-C in [place]. She enjoys relatively good health except for problems noted below. Left TKA performed 08/22/[address] Muro. She did very well postoperatively and was discharge to home 08/23/18. Started on warfarin 4 mg daily postoperatively for VTE prophylaxis. Hgb on day of discharge was 11.3. Recovering nicely from her TKA. Only requiring acetaminophen for mild-moderate postop pain. No ASA or NSAID's. Yesterday patient noted dark stools with blood clots x 3. No associated abdominal pain, nausea, vomiting. She went to bed and did not have any further bowel movements during the night. Around 0700 this morning she went to the bathroom and again passed dark stools with clots. [place] very weak and lightheaded. Her checked her BP at home and got a reading of 86/61. EMS summoned and she was brought to ED. BP in ED as low as 91/70. Received IV NSS bolus x 1 L with improvement of hemodynamics. Labs notabable for Hgb of 7.1, INR of 7.4, plts of 226,000. Vitamin K, prothrombin complex concentrate, 1 unit pRBC's, and famotidine ordered. Comfortable at time of my assessment. No rectal bleeding after arrival to ED. Colonoscopy by Dr. Kemp in 2018 demonstrated a benign colonic polyp. Allergies Allergy/AdvReac Type Severity Reaction Status Date / Time adhesive tape AdvReac Unknown skin Verified 08/27/18 10:18 irritation Home Medications Home Medications Medication Instructions Recorded Confirmed Type Centrum Chewables 2 tab PO QAM 07/10/18 08/27/18 History cholecalciferol (vitamin D3) 1 tab PO QAM 07/10/18 08/27/18 History [Vitamin D3] cyanocobalamin (vitamin B-12) 500 mcg PO QAM 07/10/18 08/27/18 History [Vitamin B-12] venlafaxine [Effexor XR] 150 mg PO QAM 07/10/18 08/27/18 History acetaminophen-codeine 2 tab PO Q6H PRN #24 tab 08/23/18 08/27/18 Rx [Tylenol-Codeine #3] acetaminophen [Tylenol Extra 500 mg PO Q6H PRN 08/27/18 08/27/18 History Strength] warfarin 2 mg PO BID 08/27/18 08/27/18 History Past Med/Surg History Medical History History of colonic polyps (Chronic) Anxiety (Chronic) Depression (Chronic) Morbid obesity Surgical History Status post total left knee replacement (Chronic) Hx of Achilles tendon repair (Chronic) LEFT Hx of cervical discectomy (Chronic) Hx of gastric bypass (Chronic) 2005 C, Slim-en-Y Family History Mother Breast cancer Father Heart disease Grandmother (Maternal) Breast cancer Social History Preferred Language: Welsh Communication Ability: Effective Beliefs That Will Affect Care: None Current Living Situation: Spouse Feels Safe at Home: Yes Smoking Status: Former smoker Hx Alcohol Use: Yes Alcohol type: wine and hard liquor Hx Substance Use: No Review of Systems Constitutional: no fever and no weight loss Eyes: no diplopia and no worsening vision Ear, Nose, Mouth, Throat: + nasal congestion and + sinus pain/pressure; no sore throat Respiratory: no cough and no dyspnea Cardiovascular: + edema (chronic mild edema LLE); no chest pain and no palpitations Gastrointestinal: as per Subjective / HPI Genitourinary: no dysuria and no hematuria Musculoskeletal: as per Subjective / HPI Integumentary: no rash and no new lesions Neurologic: no headache(s) Endocrine: no polydipsia and no polyuria Hematologic / Lymphatic: no easy bleeding, no easy bruising and no lymphadenopathy Physical Exam Constitutional: no acute distress Eyes: PERRL, conjunctivae normal, anicteric sclerae ENMT: external ear and nose normal, oropharynx normal Neck: trachea midline, no thyromegaly Respiratory: no respiratory distress Auscultation: lungs clear to auscultation bilaterally Cardiovascular: Rate/Rhythm: regular rate and regular rhythm Heart Sounds: no gallop, no murmur and no cardiac rub Vessels: no JVD Extremities: no calf tenderness and no edema Gastrointestinal (Abdomen): normal bowel sounds, soft, nontender, no hepatosplenomegaly Rectal Exam: + heme positive stool (per ED staff) Musculoskeletal: no cyanosis or clubbing, extremities motor strength 5/5 Wound VAC applied to left knee Skin: no rashes, warm and dry Neurologic: Cranial Nerves: PERRL, EOM intact bilaterally and normal facial strength motor strength extremities grossly intact Psychiatric: Orientation: alert and oriented x 3 Lymphatic: no cervical lymphadenopathy Results & Data Vital Signs (Past 12 Hours) Vital Signs Temp Pulse Resp BP Pulse Ox 08/27/18 11:47 36.7 C 97 H 20 104/71 98 08/27/18 11:18 100 08/27/18 11:07 96 H 22 141/67 H 100 08/27/18 11:00 22 08/27/18 10:31 20 109/79 99 08/27/18 10:30 14 100 08/27/18 10:01 22 91/70 L 94 08/27/18 09:59 17 109/90 100 08/27/18 09:35 102 H 18 107/63 08/27/18 09:30 36.7 C 90 20 107/63 98 Laboratory Results Laboratory Results - last 24 hr 08/27/18 08/27/18 08/27/18 09:55 09:55 09:55 WBC 11.02 H RBC 2.30 L Hgb 7.1 L Hct 20.5 L* MCV 89.1 MCH 30.9 MCHC 34.6 RDW Std Deviation 45.8 RDW Coeff of Lang 14.1 Plt Count 226 MPV 10.9 H Immature Gran % (Auto) 1.1 Neut % (Auto) 79.6 Lymph % (Auto) 14.1 [place] % (Auto) 5.0 Eos % (Auto) 0.1 Baso % (Auto) 0.1 Immature Gran # (Auto) 0.12 H Neut # (Auto) 8.78 H Lymph # (Auto) 1.55 [place] # (Auto) 0.55 Eos # (Auto) 0.01 Baso # (Auto) 0.01 RBC Morphology Unremarkable PT 65.3 H INR 7.4 H* APTT 35.4 H PTT Ratio 1.3 Sodium 143 Potassium 4.4 Chloride 112 H Carbon Dioxide 22 Anion Gap 9.0 BUN 49 H Creatinine 1.14 Est Cr Clr Drug Dosing 56.6 Est GFR ( Amer) 59.3 Est GFR (Non-Af Amer) 51.1 BUN/Creatinine Ratio 43.0 H Glucose 206 H Calcium 7.9 L Total Bilirubin 0.6 AST 18 ALT 14 Alkaline Phosphatase 74 Total Protein 5.2 L Albumin 2.2 L Globulin 3.0 Albumin/Globulin Ratio 0.7 L Lipase 167 POC Stool Occult Blood Blood Type Antibody Screen Crossmatch 08/27/18 08/27/18 09:55 10:00 WBC RBC Hgb Hct MCV MCH MCHC RDW Std Deviation RDW Coeff of Lang Plt Count MPV Immature Gran % (Auto) Neut % (Auto) Lymph % (Auto) [place] % (Auto) Eos % (Auto) Baso % (Auto) Immature Gran # (Auto) Neut # (Auto) Lymph # (Auto) [place] # (Auto) Eos # (Auto) Baso # (Auto) RBC Morphology PT INR APTT PTT Ratio Sodium Potassium Chloride Carbon Dioxide Anion Gap BUN Creatinine Est Cr Clr Drug Dosing Est GFR ( Amer) Est GFR (Non-Af Amer) BUN/Creatinine Ratio Glucose Calcium Total Bilirubin AST ALT Alkaline Phosphatase Total Protein Albumin Globulin Albumin/Globulin Ratio Lipase POC Stool Occult Blood Positive A Blood Type A Positive Antibody Screen NEGATIVE Crossmatch See Detail Code Status & VTE Plan VTE Prophylaxis Plan VTE Prophylaxis will be ordered: Yes (1) GI bleed GI bleed type/associated pathology: unspecified gastrointestinal hemorrhage type Qualified Code(s): K92.2 - Gastrointestinal hemorrhage, unspecified
[2018-08-27] MEDS ORDERED: ONDANSETRON INJ 2 MG/ML 2 ML VIAL IV PRN (12:21)
[2018-08-27] MEDS ORDERED: PANTOprazole 80 MG in DEXTROSE 5% 100 ML IV ONE (12:30)
[2018-08-27] MEDS: PANTOprazole 40 MG in DEXTROSE 5% 100 ML IV SCH ×3 (12:42→22:10)
[2018-08-27] MEDS ORDERED: ICU PROTOCOL FOR HYPERGLYCEMIA PRN (14:08)
--- NOTE | 2018-08-27 14:26 | Critical Care Consultation ---
Date of Consultation August 27, 2018 Assessment & Plan (1) GI bleed: Reason Critically Ill: 63 year old woman with new onset GI bleed, symptomatic with presyncope and briefly hypotensive requiring one unit of PRBC's. NEURO - CAM ICU: NEGATIVE Pain: Not having any pain currently Patient neurologically intact, will continue to monitor CARDIAC/VASCULAR - Hypovolemia: Secondary to diarrhea/GI bleed. Patient has already been transfused 1 unit and received bolus of normal saline in ED. No longer actively bleeding Blood pressure within normal range currently Patient also given prothrombin complex concentrate and vitamin K. Coumadin discontinued Will continue to monitor for any more active bleeding. RESPIRATORY - No history of pulmonary disease. Normal vesicular breath sounds on physical exam Supplemental O2 if needed. GI/NUTRITION - GI bleed, Dr. Butts of Gastroenterology has evaluated the patient believes it likely is an upper GI bleed and is considering endoscopy later today Will continue IV PPI Patient NPO, last meal yesterday at 5 pm No abnormalities on rectal exam besides melena and small amount of tono blood RENAL/LYTES - Renal Function within normal limits Normosol at 250 ml/hour - No vaginal bleeding or hematuria, patient able to void spontaneously ENDO - No history of diabetes or thyroid disease. HEME - Blood loss anemia hemoglobin 7.1 on admission, rechecking hemoglobin currently with 2 units held INR 7.9 on arrival, given vitamin K and prothrombin complex concentrate, rechecking INR now, should be safe for procedure today. ID - No evidence of any acute infection LINES/IV ACCESS - 2 large bore IV's DVT PROPHYLAXIS - Not ordered secondary to elevated INR and active bleeding Patient was discussed in multidisciplinary rounds (2) Anemia: (3) Acute hypotension: (4) S/P total knee arthroplasty: (5) Acute blood loss anemia: (6) Warfarin-induced coagulopathy: (7) DVT prophylaxis: Supervising Physician Co-Signing Physician Notes Dr. Dumont was resident physician during care of patient. I separately evaluated patient for montes portions of the history and the exam. I was present during the critical portion of medical decision making, and I discussed the case with the resident. I generally agree with the findings and plan. Gastrointestinal bleeding in the setting of supratherapeutic INR, patient was given PCC and 1 unit packed red blood cells hemoglobin has transitioned from 7.1-7.7. We will continue to watch the patient overnight. GI is aware in case overnight scope is required however I think we have stabilized the patient's condition. I have personally spent 35 minutes of critical care time in the direct management of this patient. This is a life/limb threatening event. This includes time spent evaluating patient, direct bedside care, chart review, placing orders, interpretation of diagnostic studies, discussion with consultants, patient, and/or family members regarding treatment decisions, as well as other required patient management activities. This time is exclusive of all separately billable procedures, and teaching time and separate from and in addition to any other critical care service time. History of Present Illness Reason for Consultation: GI bleed Attending Physician: Jude Glasgow MD History of Present Illness Ms. Tia Valiente is a 63 year old woman with a past medical history significant for multiple osteoarthritis, Ruptured achilles tendon, anxiety and depression and hypovitaminosis D who presents today 4 days post op from a left knee replacement. She was placed on coumadin at that time for DVT prophylaxis. She first noticed black stools with several large clots after dinner last night. She continued to have multiple episodes of diarrhea with black stool and bright red blood mixed with maroon clots. She also began to feel progressively more lightheaded. She did not pass out or lose consciousness at any time. She stopped taking her warfarin with last dose yesterday, she then presented this morning by ambulance to the [facility] Emergency department where she was found to be anemic with a hemoglobin of 7.1 and actively bleeding with a positive hemoccult. Transfused 1 unit and admitted to ICU. Here in ICU she reports that she feels much better, she is no longer feeling lightheaded and feels more or less like her normal self. She denies other associated symptoms: No shortness of breath, no hemoptysis at any point, no chest pain, no syncope, no abdominal pain, no nausea or vomiting, no hematemesis, no bleeding from her wound which has a wound vac, no other bruising or bleeding noted by patient. She has not had any fevers or chills, no rashes and no urinary frequency, discomfort, or hematuria. Allergies Allergy/AdvReac Type Severity Reaction Status Date / Time adhesive tape AdvReac Unknown skin Verified 08/27/18 10:18 irritation Home Medications Home Medications Medication Instructions Recorded Confirmed Type Centrum Chewables 2 tab PO QAM 07/10/18 08/27/18 History cholecalciferol (vitamin D3) 1 tab PO QAM 07/10/18 08/27/18 History [Vitamin D3] cyanocobalamin (vitamin B-12) 500 mcg PO QAM 07/10/18 08/27/18 History [Vitamin B-12] venlafaxine [Effexor XR] 150 mg PO QAM 07/10/18 08/27/18 History acetaminophen-codeine 2 tab PO Q6H PRN #24 tab 08/23/18 08/27/18 Rx [Tylenol-Codeine #3] acetaminophen [Tylenol Extra 500 mg PO Q6H PRN 08/27/18 08/27/18 History Strength] warfarin 2 mg PO BID 08/27/18 08/27/18 History Patient History Medical History History of colonic polyps (Chronic) Anxiety (Chronic) Depression (Chronic) Morbid obesity Surgical History Status post total left knee replacement (Chronic) Hx of Achilles tendon repair (Chronic) LEFT Hx of cervical discectomy (Chronic) Hx of gastric bypass (Chronic) [place] [facility] [place] Family History Mother Breast cancer Father Heart disease Grandmother (Maternal) Breast cancer Social History Preferred Language: Irish Communication Ability: Effective Beliefs That Will Affect Care: None Current Living Situation: Spouse Feels Safe at Home: No Is there a partner from a previous relationship who is making you feel unsafe now?: No Smoking Status: Former smoker Hx Alcohol Use: Yes Alcohol type: wine and hard liquor Hx Substance Use: No Physical Exam Constitutional: + obese, cooperative and comfortable; no acute distress and not lethargic Eyes: + conjunctival abnormality (Conjunctival pallor present) and + anicteric sclerae; eyes not dysmorphic Respiratory: normal respiratory effort, lungs clear to auscultation Cardiovascular: Rate/Rhythm: regular rate and regular rhythm Heart Sounds: no click, no gallop, no murmur and no cardiac rub Extremities: + edema (2-3+ pitting edema bilateral lower extremities.) Gastrointestinal (Abdomen): Inspection/Auscultation: abdomen normal to inspection and + hyperactive bowel sounds Percussion/Palpation: abdomen soft; abdomen nontender, no guarding, no hepatomegaly, no splenomegaly and no abdominal mass On rectal exam, dried melena, and some tono blood, evidence of previous pooling. no rectal lesions, anal fissures or hemorrhoids appreciated. small amount of tono blood mixed with melena on finger of glove. Musculoskeletal: Knee replacement on left knee, wound vac, bandage, no other signs of injury Results & Data Vital Signs (Past 12 Hours) Vital Signs Temp Pulse Resp BP Pulse Ox 08/27/18 13:31 92 H 17 107/69 08/27/18 13:30 90 20 98 08/27/18 13:02 91 H 18 100 08/27/18 13:01 95 H 17 119/68 99 08/27/18 13:00 93 H 17 98 08/27/18 12:54 36.6 C 92 H 17 100/74 100 08/27/18 12:32 88 18 100 08/27/18 12:31 91 H 21 100/74 100 08/27/18 12:30 90 13 100 08/27/18 12:24 36.6 C 94 H 17 99/75 L 97 08/27/18 12:16 94 H 20 99/75 L 100 08/27/18 12:09 36.9 C 93 H 21 107/69 100 08/27/18 12:03 95 H 18 107/69 100 08/27/18 12:01 97 H 17 92 08/27/18 12:00 90 18 97 08/27/18 11:47 36.7 C 97 H 20 104/71 98 08/27/18 11:42 97 H 17 104/71 100 08/27/18 11:30 92 H 21 100 08/27/18 11:18 100 08/27/18 11:07 96 H 22 141/67 H 100 08/27/18 11:00 22 08/27/18 10:31 20 109/79 99 08/27/18 10:30 14 100 08/27/18 10:01 22 91/70 L 94 08/27/18 09:59 17 109/90 100 08/27/18 09:35 102 H 18 107/63 08/27/18 09:30 36.7 C 90 20 107/63 98 Resident Activity Tracking Resident Involvement: Resident Care Provided Care Provided: Adult Hospital Medicine (1) GI bleed GI bleed type/associated pathology: unspecified gastrointestinal hemorrhage type Qualified Code(s): K92.2 - Gastrointestinal hemorrhage, unspecified (2) Anemia Anemia type: unspecified type Qualified Code(s): D64.9 - Anemia, unspecified
--- NOTE | 2018-08-27 15:23 | Gastrointestinal Consultation ---
Date of Consultation August 27, 2018 Assessment & Plan (1) GI bleed: Although could be bleeding form upper or lower source favor upper given black stool to start. By the time rectal in ER showing red blood was done she had had several bms. Recommend PPI and EGD timing of which dependent on her current CBC. Proc and risks explained to patient which include but not limited to med reaction, bleeding, perforation, aspiration. Continue PPI. elevate INR--per critical care with the reversal agent given she should be considered reversed so can proceed with EGD. acute blood loss anemia---follow H and H and transfuse prn. History of Present Illness Reason for Consultation: GI bleeding Requesting Physician: Jude Glasgow MD Attending Physician: Jude Glasgow MD History of Present Illness cc GI bleeding HPI with patient for H and P. Pt with distant hx of Gastric bypass. Hx of PUD in her 20s. No abd pain. No NSAIDS except tylenol. Had R knee surgery 5 days ago. Develope first black then dark red stool with clots last evening with last stool about 0700 this am. INR 7.4 but given reversal agent, Hgb 7.1 vs 11.3 on 08/24/18. Most recent colo by DR Palmer 09/18/17 5 mm cecal polyp removed path tubular adenoma. She has received 1 unit PRBC today. Allergies Allergy/AdvReac Type Severity Reaction Status Date / Time adhesive tape AdvReac Unknown skin Verified 08/27/18 10:18 irritation Home Medications Home Medications Medication Instructions Recorded Confirmed Type Centrum Chewables 2 tab PO QAM 07/10/18 08/27/18 History cholecalciferol (vitamin D3) 1 tab PO QAM 07/10/18 08/27/18 History [Vitamin D3] cyanocobalamin (vitamin B-12) 500 mcg PO QAM 07/10/18 08/27/18 History [Vitamin B-12] venlafaxine [Effexor XR] 150 mg PO QAM 07/10/18 08/27/18 History acetaminophen-codeine 2 tab PO Q6H PRN #24 tab 08/23/18 08/27/18 Rx [Tylenol-Codeine #3] acetaminophen [Tylenol Extra 500 mg PO Q6H PRN 08/27/18 08/27/18 History Strength] warfarin 2 mg PO BID 08/27/18 08/27/18 History Patient History Medical History History of colonic polyps (Chronic) Anxiety (Chronic) Depression (Chronic) Morbid obesity Surgical History Status post total left knee replacement (Chronic) Hx of Achilles tendon repair (Chronic) LEFT Hx of cervical discectomy (Chronic) Hx of gastric bypass (Chronic) 2005 [facility], [place] Family History Mother Breast cancer Father Heart disease Grandmother (Maternal) Breast cancer Social History Preferred Language: Kiswahili Communication Ability: Effective Beliefs That Will Affect Care: None Current Living Situation: Spouse Feels Safe at Home: No Is there a partner from a previous relationship who is making you feel unsafe now?: No Smoking Status: Former smoker Hx Alcohol Use: Yes Alcohol type: wine and hard liquor Hx Substance Use: No Review of Systems Review of Systems: All systems reviewed & are unremarkable except as noted in HPI & below Physical Exam Constitutional: WD/WN, vitals as above Eyes: PERRL, conjunctivae normal, anicteric sclerae ENMT: external ear and nose normal, oropharynx normal Neck: normal visual inspection and trachea midline Respiratory: normal respiratory effort, lungs clear to auscultation Cardiovascular: RRR, no murmur, no edema Gastrointestinal (Abdomen): normal bowel sounds, soft, nontender, no hepatosplenomegaly Neurologic: PERRL, EOMI, accommodation nl, no face palsy, no dysarthria Psychiatric: A+Ox3, euthymic affect Results & Data Vital Signs (Past 12 Hours) Vital Signs Temp Pulse Resp BP Pulse Ox 08/27/18 14:04 36.9 C 94 H 18 123/74 100 08/27/18 13:31 92 H 17 107/69 08/27/18 13:30 90 20 98 08/27/18 13:02 91 H 18 100 08/27/18 13:01 95 H 17 119/68 99 08/27/18 13:00 93 H 17 98 08/27/18 12:54 36.6 C 92 H 17 100/74 100 08/27/18 12:32 88 18 100 08/27/18 12:31 91 H 21 100/74 100 08/27/18 12:30 90 13 100 08/27/18 12:24 36.6 C 94 H 17 99/75 L 97 08/27/18 12:16 94 H 20 99/75 L 100 08/27/18 12:09 36.9 C 93 H 21 107/69 100 08/27/18 12:03 95 H 18 107/69 100 08/27/18 12:01 97 H 17 92 08/27/18 12:00 90 18 97 08/27/18 11:47 36.7 C 97 H 20 104/71 98 08/27/18 11:42 97 H 17 104/71 100 08/27/18 11:30 92 H 21 100 08/27/18 11:18 100 08/27/18 11:07 96 H 22 141/67 H 100 08/27/18 11:00 22 08/27/18 10:31 20 109/79 99 08/27/18 10:30 14 100 08/27/18 10:01 22 91/70 L 94 08/27/18 09:59 17 109/90 100 08/27/18 09:35 102 H 18 107/63 08/27/18 09:30 36.7 C 90 20 107/63 98 (1) GI bleed GI bleed type/associated pathology: unspecified gastrointestinal hemorrhage type Qualified Code(s): K92.2 - Gastrointestinal hemorrhage, unspecified
[2018-08-27] MEDS: NORMOSOL-R 1,000 ML IV SCH ×2 (15:29→19:53)
[2018-08-27 16:12] LABS: BUN Creatinine Ratio 45.7 (10-20); Calcium 8.5 mg/dl (8.5-10.1); Creatinine Clr Calc Pharmacy 64.8 ml/min; Est GFR (African American) 71.2; Est GFR (Non-African American) 61.4; Potassium 4.4 mmol/L (3.5-5.1)
[2018-08-27 16:33] LABS: Hematocrit (blood only) 22.2 % (37-47); Hemoglobin 7.7 g/dL (12.0-16.0)
--- NOTE | 2018-08-27 16:47 | Progress Note ---
DATE: 08/27/2018 SUBJECTIVE: The patient is resting comfortably in bed. She states she had painless onset of tarry and clotty stool. She has only been on Coumadin since last Monday. She has a history remotely of having ulcers. OBJECTIVE: Left knee exam reveals the wound VAC in place, has expected bruising, has no calf tenderness. Neurovascular check is normal. Has good quad tone and good straight leg raise. ASSESSMENT: Overall, doing reasonably well. Hematocrit was low. Obviously, the GI bleed, has appropriate transfusion, will have GI evaluation and potential scoping in the near future. Obviously, hold Coumadin until INR is below 2 and after her procedure is performed. Also, suggest venous pumps, SCDs while she is in bed as well as the stockings. We will make sure they ordered.
[2018-08-27 21:08] LABS: Appearance Urine Clear (Clear); Bacteria Urine Automated Negative (Negative); Bilirubin Urine Negative (Negative); Blood Urine 3+ (Negative); Color Urine Yellow; Epithelial Cell Urine Auto >30 /lpf (0-5); Glucose Urine UA Negative (Negative); Ketones Urine Negative (Negative); Leukocyte Esterase Urine Negative (Negative); Nitrite Urine Negative (Negative); Protein Urine Negative (Negative); Specific Gravity Urine 1.021 (1.000-1.030); Urobilinogen Urine Negative (Negative)
[2018-08-27 21:42] LABS: Hematocrit (blood only) 22.9 % (37-47); Hemoglobin 7.7 g/dL (12.0-16.0)
[2018-08-28] MEDS: PANTOprazole 40 MG in DEXTROSE 5% 100 ML IV SCH (03:20)
[2018-08-28 03:51] LABS: Hematocrit (blood only) 19.7 % (37-47); Hemoglobin 6.7 g/dL (12.0-16.0)
[2018-08-28 03:52] LABS: Prothrombin Time 10.6 Seconds (9.0-12.0)
[2018-08-28] MEDS ORDERED: SODIUM CHLORIDE 0.9% 250 ML IV PRN (03:52)
[2018-08-28 04:03] LABS: Albumin Level 2.3 gm/dl (3.4-5.0); BUN Creatinine Ratio 33.7 (10-20); Calcium 7.6 mg/dl (8.5-10.1); Est GFR (African American) 76.8; Est GFR (Non-African American) 66.3; Magnesium 2.3 mg/dl (1.8-2.4); Potassium 3.9 mmol/L (3.5-5.1)
[2018-08-28 04:06] LABS: Albumin Globulin Ratio 0.9 (0.9-2); Bilirubin,Total 0.8 mg/dl (0.2-1); Globulin 2.6 gm/dl (2.5-4.0); Phosphorus 2.9 mg/dl (2.5-4.9); Total Protein 4.9 gm/dl (6.4-8.2)
[2018-08-28] MEDS: NORMOSOL-R 1,000 ML IV SCH ×2 (05:24→09:30)
--- NOTE | 2018-08-28 06:33 | Gastroenterology Progress Note ---
Date of Service August 28, 2018 Assessment & Plan (1) GI bleed: Plan EGD now with therapeutic intent. elevate INR--normal post reversal. acute blood loss anemia---transfusion this am. continue to monitor and transfuse prn.. Subjective cc f/u GI bleeding HPI H and H drop this am and bloody stools overnight per nursing. No abd pain. Review of Systems Respiratory: no dyspnea Cardiovascular: no chest pain Physical Exam Constitutional: WD/WN, vitals as above Respiratory: normal respiratory effort, lungs clear to auscultation Cardiovascular: RRR, no murmur, no edema Gastrointestinal (Abdomen): normal bowel sounds, soft, nontender, no hepatosplenomegaly Psychiatric: A+Ox3, euthymic affect Results & Data Vital Signs (Past 12 Hours) Vital Signs Temp Pulse Pulse Resp BP BP Pulse Ox 08/28/18 06:00 37.2 C 92 H 18 113/51 L 100 08/28/18 05:35 37.2 C 91 H 18 110/60 100 08/28/18 05:05 37.0 C 90 18 116/52 L 100 08/28/18 04:47 37.0 C 85 18 115/63 100 08/28/18 02:30 84 18 95 08/28/18 02:00 87 16 111/66 96 08/28/18 01:30 86 18 96 08/28/18 01:00 88 24 107/63 96 08/28/18 00:30 86 19 100 08/28/18 00:26 99 H 15 117/66 100 08/28/18 00:00 85 17 102/58 L 100 08/27/18 23:30 108 H 26 H 99 08/27/18 23:01 98 H 19 100/66 100 08/27/18 23:00 36.7 C 92 H 16 100 08/27/18 22:30 87 17 98 08/27/18 22:02 87 16 99 08/27/18 22:00 93 H 17 104/68 100 08/27/18 21:00 92 H 13 122/62 97 08/27/18 20:00 36.8 C 89 15 118/70 100 08/27/18 19:00 98 H 23 111/59 L 96 (1) GI bleed GI bleed type/associated pathology: unspecified gastrointestinal hemorrhage t ype Qualified Code(s): K92.2 - Gastrointestinal hemorrhage, unspecified
--- NOTE | 2018-08-28 06:45 | Anesthesiology Consultation ---
Date of Service August 28, 2018 Assessment & Plan (1) Encounter for pre-operative examination: Chart Review Chart Review: Acceptable Risk for Surgery and Patient NOT seen in Pre Admission Testing Consults Requested none ASA [id number] Proposed Anesthesia Anesthesia Type: MAC Risk / Benefits Reviewed With: PT / POA / Parent / Guardian, Accepts Plan and Informed Consent Obtained History Surgery Operation Date: 08/28/18 14:30 Proposed Procedures p Esophagogastroduodenoscopy - GI Bleed - Gunner Btuts Height/Weight Height: 5 ft 1 in Weight: 103.4 kg Allergies Allergy/AdvReac Type Severity Reaction Status Date / Time adhesive tape AdvReac Unknown skin Verified 08/27/18 10:18 irritation Medications Home Medications Medication Instructions Recorded Confirmed Last Taken Centrum Chewables 2 tab PO QAM 07/10/18 08/27/18 08/26/18 cholecalciferol (vitamin D3) 1 tab PO QAM 07/10/18 08/27/18 08/26/18 [Vitamin D3] cyanocobalamin (vitamin B-12) 500 mcg PO QAM 07/10/18 08/27/18 08/26/18 [Vitamin B-12] venlafaxine [Effexor XR] 150 mg PO QAM 07/10/18 08/27/18 08/26/18 acetaminophen-codeine 2 tab PO Q6H PRN #24 tab 08/23/18 08/27/18 Unknown [Tylenol-Codeine #3] acetaminophen [Tylenol Extra 500 mg PO Q6H PRN 08/27/18 08/27/18 08/26/18 Strength] warfarin 2 mg PO BID 08/27/18 08/27/18 08/26/18 Active Medications Generic Name Dose Route Start Last Admin Trade Name Freq PRN Reason Stop Dose Admin Pantoprazole Sodium 40 mg/ 100 mls @ 20 mls/hr 08/27/18 12:30 08/28/18 03:20 Dextrose IV 09/26/18 12:29 20 mls/hr Q5H SEVERO Administration Parenteral Electrolytes 1,000 mls @ 100 mls/hr 08/27/18 14:08 08/28/18 05:24 Normosol-R IV 09/26/18 14:07 Not Given .Q10H SEVERO NPO Date Last Intake of Fluids: 08/27/18 Time Last Intake of Fluids: 20:00 Date Last Intake of Solids: 08/26/18 Time Last Intake of Solids: 16:00 Past Medical History Medical History History of colonic polyps (Chronic) Anxiety (Chronic) Depression (Chronic) Morbid obesity Exercise / Class Metabolic Activity II 4-5 Yardwork/Stairs/Walk up hill Past Family History Family History Mother Breast cancer Father Heart disease Grandmother (Maternal) Breast cancer Past Surgical History Surgical History Status post total left knee replacement (Chronic) Hx of Achilles tendon repair (Chronic) LEFT Hx of cervical discectomy (Chronic) Hx of gastric bypass (Chronic) 2005 [facility], [place] Past Anesthesia History No Hx of Anesthesia Complications and No Family Hx of Anesthesia Complications History of PONV No Hx of PONV and No Hx of Motion Sickness Social History Smoking Status: Former smoker Hx Alcohol Use: Yes Alcohol type: wine and hard liquor alcohol intake frequency: holidays/special occasions only Hx Substance Use: No Physical Exam Vital Signs Last Vital Signs Temp 37.1 C 08/28/18 06:31 Pulse 92 H 08/28/18 06:31 Resp 16 08/28/18 06:31 BP 113/51 L 08/28/18 06:31 Pulse Ox 92 08/28/18 06:31 ENMT Mouth: no dentition abnormality Thyromental Distance: > or= 3.5 Finger Breadths Mallampati Class: II Neck normal visual inspection Respiratory normal respiratory effort Auscultation: lungs clear to auscultation bilaterally Cardiovascular Rate/Rhythm: regular rate and regular rhythm Psychiatric Orientation: alert
[2018-08-28] MEDS ORDERED: fentaNYL citrate 100 MCG/2 ML VIAL ONE (06:59)
[2018-08-28] MEDS ORDERED: LIDOCAINE HCL 2% 2 ML VIAL/AMP(20MG/ML) INFIL ONE (07:03)
[2018-08-28] MEDS ORDERED: PROPOFOL IV EMULSION 10 MG/ML 20 ML VIAL IV ONE (07:03)
--- NOTE | 2018-08-28 07:19 | GI REPORT ---
Patient Name: Tia Valiente Procedure Date: 08/28/2018 6:32 AM Date of : 1955 Admit Type: Inpatient Age: 63 Gender: Female Attending MD: Gunner Butts MD Procedure: Upper GI endoscopy Providers: Gunner Butts MD Referring MD: Jude Glasgow Indications: Acute post hemorrhagic anemia, Hematochezia Medicines: Monitored Anesthesia Care Complications: No immediate complications. Estimated blood loss: None. Estimated Blood Loss: Estimated blood loss: none. Procedure: Pre-Anesthesia Assessment: - The risks and benefits of the procedure and the sedation options and risks were discussed with the patient. All questions were answered and informed consent was obtained. - Patient identification and proposed procedure were verified prior to the procedure by the physician, the nurse, the anesthesiologist and the it security consultant. The procedure was verified in the procedure room. After obtaining informed consent, the endoscope was passed under direct vision. Throughout the procedure, the patient's blood pressure, pulse, and oxygen saturations were monitored continuously. The Endoscope was introduced through the mouth, and advanced to the jejunum. The upper GI endoscopy was accomplished without difficulty. The patient tolerated the procedure well. Procedure and risks explained to patient which include but not limited to medication reaction, bleeding, perforation, aspiration , and missed lesions. Judicious gas insufflation was used and gas removal done on the way out. The lumen was always visualized when advancing the scope. Prep was good. Washes and suctioning used as needed to get good visualization of the mucosa. Retroflexion to look at the fundus and cardia of the stomach and GE junction was not done secondary to anatomy Findings: The Z-line was regular and was found 35 cm from the incisors. Evidence of a gastric bypass was found. A gastric pouch with a normal size was found. The staple line appeared intact. One non-bleeding cratered ulcer with a nonbleeding visible vessel (Xavi Class IIa) was found 1--2 cm distal to the gastrojejunal anastomosis. The lesion was 15 mm in largest dimension. Coagulation for bleeding prevention using argon plasma at 0.8 liters/minute and 20 love was successful. Few small ulcers noted with no stigmata. The exam was otherwise without abnormality. No fresh nor old blood noted. Impression: - Z-line regular, 35 cm from the incisors - Gastric bypass with a normal-sized pouch and intact staple line. - One non-bleeding jejunal ulcer with a nonbleeding visible vessel (Xavi Class IIa) Treated with argon plasma coagulation (APC). Few small ulcers noted with no stigmata of bleeding. - The examination was otherwise normal. - No fresh nor old blood noted. - No specimens collected. Recommendation: - Return patient to ICU for ongoing care. Gunner Butts M.D. Gunner Butts MD 08/28/2018 7:19:12 AM This report has been signed electronically. Note Initiated On: 08/28/2018 6:32 AM Number of Addenda: 0 I attest to the content of the Intraoperative Record and orders documented therein, exceptions below {[id number]}
--- NOTE | 2018-08-28 07:25 | Anesthesiology Progress Note ---
Date of Service August 28, 2018 Anesthesia Post Procedure Vital Signs Vital Signs: Temp Pulse Pulse Resp BP BP Pulse Ox 08/28/18 06:53 37.2 C 89 18 127/74 100 08/28/18 06:31 37.1 C 92 H 16 113/51 L 92 08/28/18 06:00 37.2 C 92 H 18 113/51 L 100 08/28/18 05:35 37.2 C 91 H 18 110/60 100 08/28/18 05:05 37.0 C 90 18 116/52 L 100 08/28/18 04:47 37.0 C 85 18 115/63 100 08/28/18 02:30 84 18 95 08/28/18 02:00 87 16 111/66 96 08/28/18 01:30 86 18 96 08/28/18 01:00 88 24 107/63 96 08/28/18 00:30 86 19 100 08/28/18 00:26 99 H 15 117/66 100 08/28/18 00:00 85 17 102/58 L 100 08/27/18 23:30 108 H 26 H 99 08/27/18 23:01 98 H 19 100/66 100 08/27/18 23:00 36.7 C 92 H 16 100 08/27/18 22:30 87 17 98 08/27/18 22:02 87 16 99 08/27/18 22:00 93 H 17 104/68 100 08/27/18 21:00 92 H 13 122/62 97 08/27/18 20:00 36.8 C 89 15 118/70 100 08/27/18 19:00 98 H 23 111/59 L 96 08/27/18 18:00 92 H 17 105/61 100 08/27/18 17:00 103 H 14 110/69 94 08/27/18 16:00 37.2 C 92 H 14 100/32 L 100 08/27/18 14:04 36.9 C 94 H 18 123/74 100 08/27/18 13:31 92 H 17 107/69 08/27/18 13:30 90 20 98 08/27/18 13:02 91 H 18 100 08/27/18 13:01 95 H 17 119/68 99 08/27/18 13:00 93 H 17 98 08/27/18 12:54 36.6 C 92 H 17 100/74 100 08/27/18 12:32 88 18 100 08/27/18 12:31 91 H 21 100/74 100 08/27/18 12:30 90 13 100 08/27/18 12:24 36.6 C 94 H 17 99/75 L 97 08/27/18 12:16 94 H 20 99/75 L 100 08/27/18 12:09 36.9 C 93 H 21 107/69 100 08/27/18 12:03 95 H 18 107/69 100 08/27/18 12:01 97 H 17 92 08/27/18 12:00 90 18 97 08/27/18 11:47 36.7 C 97 H 20 104/71 98 08/27/18 11:42 97 H 17 104/71 100 08/27/18 11:30 92 H 21 100 08/27/18 11:18 100 08/27/18 11:07 96 H 22 141/67 H 100 08/27/18 11:00 22 08/27/18 10:31 20 109/79 99 08/27/18 10:30 14 100 08/27/18 10:01 22 91/70 L 94 08/27/18 09:59 17 109/90 100 08/27/18 09:35 102 H 18 107/63 08/27/18 09:30 36.7 C 90 20 107/63 98 Pain Intensity Left Knee: Pain Intensity: 4 Transfer of Care Handoff Completed per policy Notes Mental Status: alert / awake / arousable and participated in evaluation Patient Amnestic to Procedure: Yes Nausea / Vomiting: adequately controlled Pain: adequately controlled Airway Patency, RR, SpO2: stable & adequate BP & HR: stable & adequate Hydration State: stable & adequate Anesthetic Complications: no major complications apparent and Pt Satisfied with anesthetic care
--- NOTE | 2018-08-28 07:34 | Critical Care Progress Note ---
Date of Service August 28, 2018 Assessment & Plan (1) GI bleed: Reason Critically Ill: 63 year old woman with new onset GI bleed, symptomatic with presyncope and briefly hypotensive requiring one unit of PRBC's in ER. NEURO - CAM ICU: NEGATIVE Pain: Not having any pain currently Patient remains neurologically intact, will continue to monitor CARDIAC/VASCULAR - Hypovolemia: Secondary to diarrhea/GI bleed. Patient was transfused 1 unit and received bolus of normal saline in ED. Required 1 additional unit coke oven mason of 08/28 prior to procedure as hemoglobin came back at 6.7 Received fluid resuscitation with normosol 250 ml/hour yesterday and maintenance at 100 mls/hour currently One more smaller episode of active bleeding during last bowel movement, per patient several small clots Patient has not been hypotensive since presentation, hemodynamically stable at present time. Patient given prothrombin complex concentrate and vitamin K 08/27 in ED Coumadin discontinued 08/26 by patient Will continue to monitor for any more active bleeding or evidence of hemodynamic instability in vitals RESPIRATORY - No history of pulmonary disease. Vesicular breath sounds on physical exam Supplemental O2 if needed. GI/NUTRITION - GI bleed, Dr. Butts of Gastroenterology taking patient for endoscopy this morning Will continue IV PPI Patient NPO, last meal 08/26 at approximately 5 pm Rectal exam showing melena and tono blood on 08/27 for me RENAL/LYTES - Renal Function within normal limits Normosol at 100 ml/hour - No vaginal bleeding or hematuria, patient able to void spontaneously ENDO - No history of diabetes or thyroid disease. HEME - Blood loss anemia hemoglobin 7.1 on admission, rechecking hemoglobin and transfusing as necessary for hemoglobin <7. Early this morning patient with hemoglobin of 6.7 and patient transfused 1 unit at that time INR 7.9 patient was given vitamin K and prothrombin complex concentrate and held coumadin, patient safe from anticoagulation perspective for procedure today ID - No evidence of any acute infection LINES/IV ACCESS - 2 large bore IV's DVT PROPHYLAXIS - Not ordered secondary to elevated INR and active bleeding Patient was discussed in multidisciplinary rounds, will hopefully be downgraded after EGD when stable. Supervising Physician Co-Signing Physician Notes Dr. Dumont was resident physician during care of patient. I separately evaluated patient for montes portions of the history and the exam. I was present during the critical portion of medical decision making, and I discussed the case with the resident. I generally agree with the findings and plan. Patient underwent EGD this morning which revealed small bleeding area near prior anastomotic line. This was cauterized. Recheck H&H later. Will be stable for downgrade out of ICU. Subjective Patient receiving one unit of PRBC's this morning, tells me she had a bowel motion with a few clots and some melena. Asymptomatic otherwise and feels well. She expresses some trepidation about the EGD this morning, but understands why she needs it done. Review of Systems Constitutional: no fever and no chills Respiratory: no cough and no dyspnea Cardiovascular: no chest pain, no dyspnea, no palpitations, no lightheadedness and no syncope Gastrointestinal: + diarrhea/loose stools; no abdominal pain, no nausea and no vomiting Neurologic: no behavioral changes and no confusion Physical Exam Constitutional: + obese, cooperative and comfortable; no acute distress and not lethargic Eyes: + conjunctival abnormality (Conjunctival pallor present) and + anicteric sclerae; eyes not dysmorphic Respiratory: normal respiratory effort, lungs clear to auscultation Cardiovascular: Rate/Rhythm: regular rate and regular rhythm Heart Sounds: no click, no gallop, no murmur and no cardiac rub Extremities: + edema (2-3+ pitting edema bilateral lower extremities.) Gastrointestinal (Abdomen): Inspection/Auscultation: abdomen normal to inspection and + hyperactive bowel sounds Percussion/Palpation: abdomen soft; abdomen nontender, no guarding, no hepatomegaly, no splenomegaly and no abdominal mass Results & Data Vital Signs (Past 12 Hours) Vital Signs Temp Pulse Resp BP Pulse Ox 08/28/18 05:35 37.2 C 91 H 18 110/60 100 08/28/18 05:05 37.0 C 90 18 116/52 L 100 08/28/18 04:47 37.0 C 85 18 115/63 100 08/28/18 02:30 84 18 95 08/28/18 02:00 87 16 111/66 96 08/28/18 01:30 86 18 96 08/28/18 01:00 88 24 107/63 96 08/28/18 00:30 86 19 100 08/28/18 00:26 99 H 15 117/66 100 08/28/18 00:00 85 17 102/58 L 100 08/27/18 23:30 108 H 26 H 99 08/27/18 23:01 98 H 19 100/66 100 08/27/18 23:00 36.7 C 92 H 16 100 08/27/18 22:30 87 17 98 08/27/18 22:02 87 16 99 08/27/18 22:00 93 H 17 104/68 100 08/27/18 21:00 92 H 13 122/62 97 08/27/18 20:00 36.8 C 89 15 118/70 100 08/27/18 19:00 98 H 23 111/59 L 96 08/27/18 18:00 92 H 17 105/61 100 Resident Activity Tracking Resident Involvement: Resident Care Provided Care Provided: Adult Hospital Medicine (1) GI bleed GI bleed type/associated pathology: unspecified gastrointestinal hemorrhage type Qualified Code(s): K92.2 - Gastrointestinal hemorrhage, unspecified
[2018-08-28] MEDS ORDERED: MAGNESIUM CITRATE 296 ML/BTL PO STA (07:44)
--- NOTE | 2018-08-28 07:47 | Post Operative Brief Note ---
Immediate Post Op Note v1 Date of Surgery August 28, 2018 Pre & Post Diagnosis Operation Date: 08/28/18 14:30 Pre-Op Diagnosis: GI BLEED Post-Op Diagnosis: Gastric bypass, anastomotic ulcers Procedure Operation Date: 08/28/18 14:30 Actual Procedures p Esophagogastroduodenoscopy - Gunner Butts Surgeon [employer] see proc report Estimated Blood Loss 0 Findings Consistent with Post-Op Diagnosis see EGD report. Pt stable post op. Went over report with her. Plan Po protonix, carafate, laxative to purge gut. clear liquid diet.
[2018-08-28] MEDS: SUCRALFATE 1 GM/10 ML UDC PO SCH ×4 (09:29→20:17)
[2018-08-28] MEDS: PANTOprazole 40 MG TAB PO SCH ×2 (09:29→20:17)
--- NOTE | 2018-08-28 11:30 | XRay Report ---
XR chest 1V portable CLINICAL HISTORY: 63 years-old Female presenting with gi bleed. TECHNIQUE: Portable upright AP view of the chest was obtained. COMPARISON: 07/26/2018. FINDINGS: Atherosclerosis of the aortic arch. Cardiac silhouette top normal in size. No focal opacity. No large effusion or pneumothorax. Osseous structures normal. Upper abdomen normal. IMPRESSION: 1. No acute cardiopulmonary disease. Electronically signed by: Korey Kinsey M.D. 08/28/2018 11:29 AM
[2018-08-28 16:24] LABS: Hematocrit (blood only) 26.5 % (37-47); Hemoglobin 8.5 g/dL (12.0-16.0)
[2018-08-28] MEDS: VENLAFAXINE HCL XR 150 MG CAPXR PO SCH (17:08)
--- NOTE | 2018-08-28 17:28 | Hospitalist Progress Note ---
Date of Service August 28, 2018 Assessment & Plan (1) GI bleed: Several episodes of rectal bleeding with dark stool and clots. Clinically orthostatic. Hgb 7, compared to 11 last week. Could have upper or lower source of bleeding. S/P Slim-en-Y gastric bypass. History of colonic polyps, last colonoscopy [address] Kemp. On warfarin with supra therapeutic INR of 7. Hemorrhagic disorder due to extrinsic circulating anticoagulant/Coumadin. No ASA, NSAID's, or other gastric irritants. Received IV pantoprazole bolus / infusion. Warfarin reversed with vitamin K and K-Centra ordered in ED. Hgb this morning 6.7. Received 2nd unit pRBC's. GI consulted. EGD demonstrated anastomotic ulcer, nonbleeding. There was a visible vessel that was prophylactically coagulated with laser. Pantoprazole transitioned to PO. Sucralfate added. Continue to monitor H/H. (2) Acute blood loss anemia: As noted above. (3) Warfarin-induced coagulopathy: As noted above. (4) S/P total knee arthroplasty: Doing well postoperatively until GI bleed. Ortho notified of admission. (5) Advance directive discussed with patient: Advanced directives discussed with patient and her family. She has a living will. She would like resuscitation attempted in the event of a cardiopulmonary arrest if there is a reasonable chance of a meaningful recovery. She does not want extraordinary measures initiated or continued if prognosis is grim. (6) DVT prophylaxis: No anticoagulants because of GI bleeding. SCD's. Ambulate when able. (7) Discharge planning issues: Anticipated discharge to home. Medical follow-up with Jodi Avila PA-C. Ortho follow-up with Dr. Muro. Subjective Recheck for GI bleed. Patient seen in their room around 0910. Doing well. No significant rectal bleeding overnight. EGD done this morning. No nausea, vomiting, abdominal pain. Review of Systems: Constitutional- no fever. Cardiac- no chest pain. Pulmonary- no cough or SOB. GI- as noted above. - no urinary symptoms. Otherwise, as noted above. Physical Exam Constitutional: no acute distress Respiratory: no respiratory distress Auscultation: lungs clear to auscultation bilaterally Cardiovascular: Rate/Rhythm: regular rate and regular rhythm Heart Sounds: no gallop, no murmur and no cardiac rub Vessels: no JVD Extremities: no calf tenderness and no edema Gastrointestinal (Abdomen): normal bowel sounds, soft, nontender, no hepatosplenomegaly Musculoskeletal: Extremities: + extremities abnormal to inspection (wound vac left knee) Skin: no rashes, warm and dry Psychiatric: Orientation: alert and oriented x 3 Results & Data Vital Signs (Past 12 Hours) Vital Signs Temp Pulse Pulse Resp BP BP Pulse Ox 08/28/18 15:16 37.1 C 98 H 18 114/75 99 08/28/18 14:08 88 08/28/18 14:00 101 H 20 121/62 08/28/18 12:00 36.8 C 98 H 20 132/81 100 08/28/18 11:00 94 H 20 139/65 100 08/28/18 10:00 88 19 122/71 100 08/28/18 09:33 96 H 16 102/68 100 08/28/18 08:00 88 08/28/18 07:45 37 C 88 19 111/61 97 08/28/18 07:35 96 H 18 123/64 98 08/28/18 07:25 91 H 14 123/71 99 08/28/18 07:15 37 C 88 15 122/52 L 99 08/28/18 06:53 37.2 C 89 18 127/74 100 08/28/18 06:31 37.1 C 92 H 16 113/51 L 92 08/28/18 06:00 37.2 C 92 H 18 113/51 L 100 08/28/18 05:35 37.2 C 91 H 18 110/60 100 Laboratory Results Laboratory Results - last 24 hr 08/27/18 08/28/18 08/28/18 09:55 05:54 16:13 Hgb 8.5 L Hct 26.5 L POC Glucose 90 Blood Type A Positive Antibody Screen NEGATIVE Crossmatch See Detail (1) GI bleed GI bleed type/associated pathology: unspecified gastrointestinal hemorrhage type Qualified Code(s): K92.2 - Gastrointestinal hemorrhage, unspecified
[2018-08-29 06:46] LABS: Basophils # (auto) 0.04 K/uL (0-0.2); Basophils % (auto) 0.5 %; Eosinophils # (auto) 0.13 K/uL (0-0.5); Eosinophils % (auto) 1.8 %; Hematocrit (blood only) 23.8 % (37-47); Hemoglobin 7.9 g/dL (12.0-16.0); Immature Granulocytes # (auto) 0.11 K/uL (0.00-0.02); Immature Granulocytes % (auto) 1.5 %; Lymphocytes # (auto) 2.26 K/uL (1.2-3.4); Lymphocytes % (auto) 30.5 %; Mean Corpuscular Hgb Conc 33.2 g/dL (32-36); Mean Corpuscular Volume 89.1 fL (80-100); Mean Platelet Volume 10.8 fL (7.4-10.4); Monocytes # (auto) 0.85 K/uL (0.11-0.59); Monocytes % (auto) 11.5 %; Neutrophils # (auto) 4.02 K/uL (1.4-6.5); Neutrophils % (auto) 54.2 %; Platelet Count 156 K/uL (130-400); RDW Coefficient of Variation 14.8 % (11.5-14.5); RDW Standard Deviation 47.9 fL (36.4-46.3); Red Blood Count 2.67 M/uL (4.2-5.4); White Blood Count 7.41 K/uL (4.8-10.8)
[2018-08-29 06:58] LABS: INR 1.1 (0.9-1.1); Prothrombin Time 10.8 Seconds (9.0-12.0)
[2018-08-29 07:26] LABS: Poikilocytosis Present; Polychromasia 1+
[2018-08-29 07:32] LABS: Albumin Globulin Ratio 0.9 (0.9-2); Albumin Level 2.4 gm/dl (3.4-5.0); BUN Creatinine Ratio 16.4 (10-20); Bilirubin,Total 0.8 mg/dl (0.2-1); Calcium 8.1 mg/dl (8.5-10.1); Creatinine Clr Calc Pharmacy 70.5 ml/min; Est GFR (African American) 78.9; Globulin 2.8 gm/dl (2.5-4.0); Potassium 3.6 mmol/L (3.5-5.1); Total Protein 5.2 gm/dl (6.4-8.2)
[2018-08-29] MEDS: PANTOprazole 40 MG TAB PO SCH ×2 (09:05→20:07)
[2018-08-29] MEDS: VENLAFAXINE HCL XR 150 MG CAPXR PO SCH (09:05)
[2018-08-29] MEDS: SUCRALFATE 1 GM/10 ML UDC PO SCH ×4 (09:05→20:08)
[2018-08-29] MEDS ORDERED: MAGNESIUM CITRATE 296 ML/BTL PO STA (15:21)
--- NOTE | 2018-08-29 15:26 | Gastroenterology Progress Note ---
Date of Service August 29, 2018 Assessment & Plan (1) GI bleed: Likely has stopped but with drift in Hgb want to make sure not still oozing. Give mag citrate and hopefully will see non black nor bloody stools Jejunal ulcer at anastomsosi---Discussed with Dr Glasgow continue PPi bid and carafate and once DCed continued that until OV with DR Camilo or me. elevate INR--normal post reversal. acute blood loss anemia---slight drop this am vs yesterday. repeat in am. Possbible DC in am depending on stool output and Hgb. Solid diet. .. Subjective cc f/u GI bleeding HPI Several stools with laxative yesterday. Small stool this am black clot. No abd pain. Review of Systems Respiratory: no dyspnea Cardiovascular: no chest pain Physical Exam Constitutional: WD/WN, vitals as above Respiratory: normal respiratory effort, lungs clear to auscultation Cardiovascular: RRR, no murmur, no edema Gastrointestinal (Abdomen): normal bowel sounds, soft, nontender, no hepatosplenomegaly Results & Data Vital Signs (Past 12 Hours) Vital Signs Temp Pulse Pulse Resp BP Pulse Ox 08/29/18 12:51 36 C L 88 20 115/73 08/29/18 08:00 78 08/29/18 07:35 37.1 C 81 16 111/76 96 08/29/18 04:34 36.7 C 78 15 107/70 100 (1) GI bleed GI bleed type/associated pathology: unspecified gastrointestinal hemorrhage type Qualified Code(s): K92.2 - Gastrointestinal hemorrhage, unspecified
--- NOTE | 2018-08-29 21:20 | Hospitalist Progress Note ---
Date of Service August 29, 2018 Assessment & Plan (1) GI bleed: Several episodes of rectal bleeding with dark stool and clots. Clinically orthostatic at home. Hgb 7, compared to 11 last week. S/P Slim-en-Y gastric bypass. History of colonic polyps, last colonoscopy [address] Kemp. On warfarin with supra therapeutic INR of 7. Hemorrhagic disorder due to extrinsic circulating anticoagulant/Coumadin. No ASA, NSAID's, or other gastric irritants. Received IV pantoprazole bolus / infusion. Warfarin reversed with vitamin K and K-Centra ordered in ED. Hgb fell as low as 6.7. Received 2nd unit pRBC's. GI consulted. EGD demonstrated anastomotic ulcer, nonbleeding. There was a visible vessel that was prophylactically coagulated with laser. Pantoprazole transitioned to PO. Sucralfate added. Continue to monitor H/H. (2) Acute blood loss anemia: As noted above. (3) Warfarin-induced coagulopathy: As noted above. (4) S/P total knee arthroplasty: Doing well postoperatively until GI bleed. Ortho notified of admission. (5) Advance directive discussed with patient: Advanced directives discussed with patient and her family. She has a living will. She would like resuscitation attempted in the event of a cardiopulmonary arrest if there is a reasonable chance of a meaningful recovery. She does not want extraordinary measures initiated or continued if prognosis is grim. (6) DVT prophylaxis: No anticoagulants because of GI bleeding. SCD's. Ambulate when able. (7) Discharge planning issues: Anticipated discharge to home. Medical follow-up with Jodi Avila PA-C. Ortho follow-up with Dr. Muro. Subjective Recheck for GI bleed. Pt seen in her room. visiting. Passed a small dark blood clot per rectum this morning. No abdominal pain, nausea, vomiting. Ambulating in hallway. No lightheadedness, CP, SOB. Physical Exam Constitutional: no acute distress Respiratory: no respiratory distress Auscultation: lungs clear to auscultation bilaterally Cardiovascular: Rate/Rhythm: regular rate and regular rhythm Heart Sounds: no gallop, no murmur and no cardiac rub Vessels: no JVD Extremities: no calf tenderness and no edema Gastrointestinal (Abdomen): normal bowel sounds, soft, nontender, no hepatosplenomegaly Musculoskeletal: no cyanosis or clubbing, extremities motor strength 5/5 Extremities: + extremities abnormal to inspection (wound vac left knee) Skin: no rashes, warm and dry Psychiatric: Orientation: alert and oriented x 3 Results & Data Vital Signs (Past 12 Hours) Vital Signs Temp Pulse Pulse Resp BP BP Pulse Ox 08/29/18 19:23 36.7 C 81 18 115/75 98 08/29/18 16:19 84 08/29/18 15:00 36.7 C 75 17 114/75 98 08/29/18 12:51 36 C L 88 20 115/73 Laboratory Results Laboratory Results - last 24 hr 08/29/18 08/29/18 08/29/18 06:16 06:16 06:16 WBC 7.41 RBC 2.67 L Hgb 7.9 L Hct 23.8 L MCV 89.1 MCH 29.6 MCHC 33.2 RDW Std Deviation 47.9 H RDW Coeff of Lang 14.8 H Plt Count 156 MPV 10.8 H Immature Gran % (Auto) 1.5 Neut % (Auto) 54.2 Lymph % (Auto) 30.5 [place] % (Auto) 11.5 Eos % (Auto) 1.8 Baso % (Auto) 0.5 Immature Gran # (Auto) 0.11 H Neut # (Auto) 4.02 Lymph # (Auto) 2.26 [place] # (Auto) 0.85 H Eos # (Auto) 0.13 Baso # (Auto) 0.04 Polychromasia 1+ Poikilocytosis Present PT 10.8 INR 1.1 Sodium 145 Potassium 3.6 Chloride 112 H Carbon Dioxide 27 Anion Gap 6.0 BUN 15 D Creatinine 0.90 Est Cr Clr Drug Dosing 70.5 Est GFR ( Amer) 78.9 Est GFR (Non-Af Amer) 68.0 BUN/Creatinine Ratio 16.4 Glucose 85 Calcium 8.1 L Total Bilirubin 0.8 AST 22 ALT 16 Alkaline Phosphatase 75 Total Protein 5.2 L Albumin 2.4 L Globulin 2.8 Albumin/Globulin Ratio 0.9 (1) GI bleed GI bleed type/associated pathology: unspecified gastrointestinal hemorrhage type Qualified Code(s): K92.2 - Gastrointestinal hemorrhage, unspecified
[2018-08-30 08:19] LABS: Hematocrit (blood only) 22.9 % (37-47); Hemoglobin 7.6 g/dL (12.0-16.0); Mean Corpuscular Hgb Conc 33.2 g/dL (32-36); Mean Corpuscular Volume 90.9 fL (80-100); Mean Platelet Volume 9.5 fL (7.4-10.4); Platelet Count 234 K/uL (130-400); RDW Coefficient of Variation 14.6 % (11.5-14.5); RDW Standard Deviation 48.1 fL (36.4-46.3); Red Blood Count 2.52 M/uL (4.2-5.4); White Blood Count 7.23 K/uL (4.8-10.8)
[2018-08-30] MEDS: SUCRALFATE 1 GM/10 ML UDC PO SCH (08:36)
[2018-08-30] MEDS: PANTOprazole 40 MG TAB PO SCH (08:36)
[2018-08-30] MEDS: VENLAFAXINE HCL XR 150 MG CAPXR PO SCH (08:36)
[2018-08-30 08:50] LABS: Basophils # (auto) 0.04 K/uL (0-0.2); Basophils % (auto) 0.6 %; Eosinophils % (auto) 1.4 %; Immature Granulocytes % (auto) 1.4 %; Lymphocytes # (auto) 2.12 K/uL (1.2-3.4); Lymphocytes % (auto) 29.3 %; Monocytes # (auto) 0.71 K/uL (0.11-0.59); Monocytes % (auto) 9.8 %; Neutrophils # (auto) 4.16 K/uL (1.4-6.5); Neutrophils % (auto) 57.5 %; Polychromasia 1+
[2018-08-30 08:54] LABS: Albumin Level 2.4 gm/dl (3.4-5.0); BUN Creatinine Ratio 14.3 (10-20); Calcium 8.4 mg/dl (8.5-10.1); Creatinine Clr Calc Pharmacy 67.8 ml/min; Est GFR (African American) 75.8; Est GFR (Non-African American) 65.4; Potassium 3.6 mmol/L (3.5-5.1)
[2018-08-30 08:57] LABS: Albumin Globulin Ratio 0.8 (0.9-2); Bilirubin,Total 0.7 mg/dl (0.2-1); Globulin 3.1 gm/dl (2.5-4.0); Total Protein 5.5 gm/dl (6.4-8.2)
--- NOTE | 2018-08-30 10:14 | Hospitalist Progress Note ---
Date of Service August 30, 2018 Assessment & Plan (1) GI bleed: Several episodes of rectal bleeding with dark stool and clots. Clinically orthostatic at home. Hgb 7, compared to 11 last week. S/P Slim-en-Y gastric bypass. History of colonic polyps, last colonoscopy [address] Kemp. On warfarin with supra therapeutic INR of 7. Hemorrhagic disorder due to extrinsic circulating anticoagulant/Coumadin. No ASA, NSAID's, or other gastric irritants. Received IV pantoprazole bolus / infusion. Warfarin reversed with vitamin K and K-Centra ordered in ED. Hgb fell as low as 6.7. Received 2nd unit pRBC's. GI consulted. EGD demonstrated anastomotic ulcer, nonbleeding. There was a visible vessel that was prophylactically coagulated with laser. Pantoprazole transitioned to PO. Sucralfate added. Stools now brown. Hgb 7.6. Discharge on omeprazole 40 mg BID, sucralfate ACHS, FeSO4 with ascorbic acid. Duration of BID PPI and sucralfate to be determined by GI. Recheck H/H in clinic. (2) Acute blood loss anemia: As noted above. (3) Warfarin-induced coagulopathy: As noted above. (4) S/P total knee arthroplasty: Doing well postoperatively until GI bleed. Ortho notified of admission. (5) Advance directive discussed with patient: Advanced directives discussed with patient and her family. She has a living will. She would like resuscitation attempted in the event of a cardiopulmonary arrest if there is a reasonable chance of a meaningful recovery. She does not want extraordinary measures initiated or continued if prognosis is grim. (6) DVT prophylaxis: No anticoagulants because of GI bleeding. SCD's. Ambulating. Arrangements for home SCD's made by Ortho. (7) Discharge planning issues: Discharge to home. Medical follow-up with Jodi Avila PA-C. Ortho follow-up with Dr. Muro. GI follow-up with Drs. Kemp / Ilana. Subjective Recheck for GI bleed. Pt seen in her room around 10:00. Feels well. Anxious to go home. No passing brown stool. No abdominal pain, nausea, vomiting. Ambulating in hallway. No lightheadedness, CP, SOB. Physical Exam Constitutional: no acute distress Respiratory: no respiratory distress Auscultation: lungs clear to auscultation bilaterally Cardiovascular: Rate/Rhythm: regular rate and regular rhythm Heart Sounds: no gallop, no murmur and no cardiac rub Vessels: no JVD Extremities: no calf tenderness and no edema Gastrointestinal (Abdomen): normal bowel sounds, soft, nontender, no hepatosplenomegaly Musculoskeletal: no cyanosis or clubbing, extremities motor strength 5/5 Extremities: + extremities abnormal to inspection (wound vac left knee removed; TEDS on) Psychiatric: Orientation: alert and oriented x 3 Results & Data Vital Signs (Past 12 Hours) Vital Signs Temp Pulse Pulse Resp BP BP Pulse Ox 08/30/18 08:00 85 08/30/18 07:06 36.9 C 94 H 18 118/74 96 08/30/18 03:54 36.6 C 88 16 128/75 100 08/30/18 00:23 37.2 C 96 H 16 104/67 94 Laboratory Results Short CBC 08/30/18 Range/Units 08:05 WBC 7.23 (4.8-10.8) K/uL Hgb 7.6 L (12.0-16.0) g/dL Hct 22.9 L (37-47) % Plt Count 234 (130-400) K/uL BMP 08/30/18 08:05 Sodium 143 Potassium 3.6 Chloride 108 H Carbon Dioxide 27 BUN 13 Creatinine 0.93 Glucose 123 H Calcium 8.4 L Liver Function 08/30/18 Range/Units 08:05 Total Bilirubin 0.7 (0.2-1) mg/dl AST 28 (15-37) U/L ALT 23 (12-78) U/L Alkaline Phosphatase 86 (45-117) U/L Albumin 2.4 L (3.4-5.0) gm/dl (1) GI bleed GI bleed type/associated pathology: unspecified gastrointestinal hemorrhage type Qualified Code(s): K92.2 - Gastrointestinal hemorrhage, unspecified
--- NOTE | 2018-08-30 11:10 | Discharge Summary ---
Date of Service Date of Admission: 08/27/18 Date of Discharge: 08/30/18 Admission HPI Per Admitting Provider 63 YO female followed by Jodi Avila PA-C in [place]. She enjoys relatively good health except for problems noted below. Left TKA performed 08/22/[address] Muro. She did very well postoperatively and was discharge to home 08/23/18. Started on warfarin 4 mg daily postoperatively for VTE prophylaxis. Hgb on day of discharge was 11.3. Recovering nicely from her TKA. Only requiring acetaminophen for mild-moderate postop pain. No ASA or NSAID's. Yesterday patient noted dark stools with blood clots x 3. No associated abdominal pain, nausea, vomiting. She went to bed and did not have any further bowel movements during the night. Around 0700 this morning she went to the bathroom and again passed dark stools with clots. [place] very weak and lightheaded. Her checked her BP at home and got a reading of 86/61. EMS summoned and she was brought to ED. BP in ED as low as 91/70. Received IV NSS bolus x 1 L with improvement of hemodynamics. Labs notabable for Hgb of 7.1, INR of 7.4, plts of 226,000. Vitamin K, prothrombin complex concentrate, 1 unit pRBC's, and famotidine ordered. Comfortable at time of my assessment. No rectal bleeding after arrival to ED. Colonoscopy by Dr. Kemp in 2018 demonstrated a benign colonic polyp. Admission Exam Per Admitting Provider Constitutional: no acute distress Eyes: PERRL, conjunctivae normal, anicteric sclerae ENMT: external ear and nose normal, oropharynx normal Neck: trachea midline, no thyromegaly Respiratory: no respiratory distress Auscultation: lungs clear to auscultation bilaterally Cardiovascular: Rate/Rhythm: regular rate and regular rhythm Heart Sounds: no gallop, no murmur and no cardiac rub Vessels: no JVD Extremities: no calf tenderness and no edema Gastrointestinal (Abdomen): normal bowel sounds, soft, nontender, no hepatosplenomegaly Rectal Exam: + heme positive stool (per ED staff) Musculoskeletal: no cyanosis or clubbing, extremities motor strength 5/5 Wound VAC applied to left knee Skin: no rashes, warm and dry Neurologic: Cranial Nerves: PERRL, EOM intact bilaterally and normal facial strength motor strength extremities grossly intact Psychiatric: Orientation: alert and oriented x 3 Lymphatic: no cervical lymphadenopathy Principal Diagnosis upper GI bleed due to gastric anastomotic ulcers coagulopathy secondary to warfarin acute blood loss anemia recent left total knee arthroplasty Discharge Data Allergies Allergy/AdvReac Type Severity Reaction Status Date / Time adhesive tape AdvReac Unknown skin Verified 08/27/18 10:18 irritation Consultations 08/27/18 11:02 ED Decision to Admit Stat 08/27/18 14:08 Consult Case Management - Discharge Planning Routine Consult Supervisor Lump Room Routine 08/27/18 14:33 Consult Gastroenterology Routine 08/29/18 04:52 Consult Case Management - Discharge Planning Routine Procedures Performed Operation Date: 08/28/18 14:30 Actual Procedures p Esophagogastroduodenoscopy - [facility] (1) GI bleed: Several episodes of rectal bleeding with dark stool and clots. Clinically orthostatic at home. Hgb 7, compared to 11 last week. S/P Slim-en-Y gastric bypass. History of colonic polyps, last colonoscopy [address] Kemp. On warfarin with supra therapeutic INR of 7. Hemorrhagic disorder due to extrinsic circulating anticoagulant/Coumadin. No ASA, NSAID's, or other gastric irritants. Received IV pantoprazole bolus / infusion. Warfarin reversed with vitamin K and K-Centra ordered in ED. Hgb fell as low as 6.7. Received 2nd unit pRBC's. GI consulted. EGD demonstrated anastomotic ulcer, nonbleeding. There was a visible vessel that was prophylactically coagulated with laser. Pantoprazole transitioned to PO. Sucralfate added. Stools now brown. Hgb 7.6. Discharge on omeprazole 40 mg BID, sucralfate ACHS, FeSO4 with ascorbic acid. Duration of BID PPI and sucralfate to be determined by GI. Recheck H/H in clinic. (2) Acute blood loss anemia: As noted above. (3) Warfarin-induced coagulopathy: As noted above. (4) S/P total knee arthroplasty: Doing well postoperatively until GI bleed. Ortho notified of admission. (5) DVT prophylaxis: No anticoagulants because of GI bleeding. SCD's. Ambulating. Arrangements for home SCD's made by Ortho. (6) Discharge planning issues: Discharge to home. Medical follow-up with Jodi Avila PA-C. Ortho follow-up with Dr. Muro. GI follow-up with Drs. Kemp / Ilana. Total Time Total Time Spent Total Time Spent (In Minutes): 40 Discharge Plan Discharge Items Patient Disposition: Home - Self-Care Reason For Visit: gastrointestinal bleeding Discharge Diagnosis: stomach ulcers anemia Condition: Good Discharge Goals: Decrease discomfort and Improve disease control Activity: As commented below Activity Comment: gradually increase activity as tolerated Non-emergency contact: Primary Care Provider, Hospitalist and Development And Planning Engineer Call non-emergency contact if: you have any medication questions and your symptoms worsen Follow-up/Referrals: Everton Kemp [Physician] - (Please call office for appointment with Dr. Kemp or Dr. Preciado in about 3 weeks.) Lucien Muro MD [Surgeon] - (Recheck with Mark Espino next week as scheduled.) Jodi Avila PA-C [Primary Care Provider] - (09/03/2018 2:20 PM Taylor Crandall, [facility]) Diet: Heart Healthy Diet Comment: low fiber diet for 1 week Addtl Provider Instructions: Stop warfarin (Coumadin). Do not use any products that contain aspirin, ibuprofen, naproxen, or similar drugs. Check with your pharmacist if uncertain. OK to take acetaminophen (Tylenol) for pain as directed. New medications: omeprazole (Prilosec) 40 mg twice a day until further notice take morning dose first thing in the morning, at least 30 min before other medications and food take evening dose about 2 hours after supper sucralfate (Carafate) 1 gm before meals and at bedtime until further notice ferrous sulfate (iron) 325 mg daily with ascorbic acid (vitamin C) 500 mg before lunch (no prescriptions necessary) continue until hemoglobin level gets back to normal Inflatable stockings to prevent blood clots to be delivered to your home. Use them while sleeping or inactive for long periods of time. Continue using elastic support stockings as before. Seek medical attention if you have: * temperature above 101 * chest pain or trouble breathing * abdominal pain, nausea, vomiting * diarrhea, dark stools or bloody stools * any unanswered questions or concerns Call 911 if symptoms are severe. Please take good care of yourself. Call if you have any questions or problems. My cell # is [phone]. You can also reach a [facility] hospitalist on duty at [facility] 24 hours a day by calling [phone]. Prescriptions: New omeprazole 40 mg capsule,delayed release(DR/EC) 40 mg PO BID Qty: 60 RF: 1 sucralfate 1 gram tablet 1 gm PO ACHS Qty: 120 RF: 1 ferrous sulfate 325 mg (65 mg iron) tablet,delayed release (DR/EC) 325 mg PO DAILY Qty: 30 RF: 0 ascorbic acid (vitamin C) 500 mg tablet 500 mg PO DAILY Qty: 30 RF: 0 Continued venlafaxine [Effexor XR] 150 mg Capsule,Extended Release 24hr 150 mg PO QAM RF: 0 cyanocobalamin (vitamin B-12) [Vitamin B-12] 500 mcg Tablet 500 mcg PO QAM RF: 0 cholecalciferol (vitamin D3) [Vitamin D3] 400 unit Tablet 1 tab PO QAM RF: 0 Centrum Chewables 8 mg-400 mcg- 10 mcg Tablet,Chewable 2 tab PO QAM RF: 0 acetaminophen-codeine [Tylenol-Codeine #3] 300-30 mg tablet 2 tab PO Q6H PRN (Reason: pain) Qty: 24 RF: 0 acetaminophen [Tylenol Extra Strength] 500 mg Tablet 500 mg PO Q6H PRN (Reason: Pain) RF: 0 Discontinued warfarin 2 mg tablet 2 mg PO BID RF: 0 Stand-Alone Forms: My [facility] Discharge Orders: Discharge Order (Routine); Ordered 08/30/18 Ordered By: Jude Glasgow Admission Data Admit Date/Time: 08/27/18 12:20 Attending Provider: Jude Glasgow Admit Provider: Jude Glasgow Primary Care Provider: Jodi Avila Other Providers: Jude Glasgow ; Gunner Mckeon Brian D. Service: Intensive Care Unit
== END 2018-08-30 11:50 | disposition home or self-care (01) | DRG 813 ==
LOC: ED 09:27 → 1E 12:20 → 2S 08-28 10:12

== ENCOUNTER 2022-12-07 06:22 | Observation (INO) ==
--- NOTE | 2022-11-21 15:58 | PAT Medication Instructions ---
Medication Instructions Date of Service November 21, 2022 Home Medications Medication Instructions Recorded venlafaxine 150 mg 150 mg PO QAM #90 caps 04/25/22 capsule,extended release 24 hr (Effexor XR) kghmrwld-qldqaidn-tluz 8 mg-folic ac 400 mcg-vit K 10 mcg chew tablet (Centrum Chewables) 2 tab PO QAM venlafaxine 150 mg capsule,extended release 24 hr (Effexor XR) 150 mg PO QAM cholecalciferol (vitamin D3) 25 mcg (1,000 unit) capsule 25 mcg PO QAM cyanocobalamin (vitamin B-12) 1,000 mcg tablet (Vitamin B-12) 1,000 mcg PO QAM ferrous sulfate 325 mg (65 mg iron) tablet (Iron (ferrous sulfate)) 325 mg PO Q2D lisinopril 20 mg tablet 10 mg PO QAM DO NOT take the morning of surgery hkgbvcrm-nxjgvkla-enuq 8 mg-folic ac 400 mcg-vit K 10 mcg chew tablet (Centrum Chewables) 2 tab PO QAM cholecalciferol (vitamin D3) 25 mcg (1,000 unit) capsule 25 mcg PO QAM cyanocobalamin (vitamin B-12) 1,000 mcg tablet (Vitamin B-12) 1,000 mcg PO QAM ferrous sulfate 325 mg (65 mg iron) tablet (Iron (ferrous sulfate)) 325 mg PO Q2D lisinopril 20 mg tablet 10 mg PO QAM Take morning of surgery With a small sip of water, OTHERWISE NOTHING TO EAT OR DRINK AFTER MIDNIGHT: venlafaxine 150 mg capsule,extended release 24 hr (Effexor XR) 150 mg PO QAM Other Notes If you have any questions please call us at [phone] or [phone] or [phone] or [phone]
--- NOTE | 2022-11-24 14:22 | Anesthesiology Consultation ---
Date of Service November 24, 2022 Assessment & Plan (1) Encounter for pre-operative examination: - neuraxial anesthesia: Patient reports several year low back pain following neuraxial anesthesia > 40 years ago. She reports did well with spinal block in 2019. General vs neuraxial anesthesia discussed with patient, she expresses preference to have neuraxial anesthesia. SAB L3-L4 2 attempts + PNB 08/22/18/ L TKA. - Outpatient joint assessment: Patient is currently scheduled for inpatient pathway. If re-evaluated and patient/surgeon requests outpatient pathway, patient is not recommended candidate for outpatient joint program from anesthesia standpoint, patient expresses preference to remain in hospital overnight. Chart Review Chart Review: Acceptable Risk for Surgery and Patient seen in Pre Admission Testing Teaching & Discussion Pre-Anesthesia Teaching/Discussion Notes: Instructed NPO after midnight before surgery, except medications with 15 cc of water. Medication instructions provided according to the PAT guidelines. History Surgery Operation Date: 12/07/22 07:00 Proposed Procedures p Right Total Knee Arthroplasty - Lucien Muro MD Height/Weight Height: 5 ft 1 in Weight: 99.9 kg Allergies Allergy/AdvReac Type Severity Reaction Status Date / Time adhesive tape AdvReac Unknown skin Verified 11/21/22 15:30 irritation warfarin Allergy stomach Uncoded 06/09/22 15:52 ulcer Medications Home Medications Medication Instructions Recorded Confirmed Last Taken ncxgjhpw-zgygvxra-vyke 8 mg-folic 2 tab PO QAM 07/10/18 11/21/22 08/26/18 ac 400 mcg-vit K 10 mcg chew tablet (Centrum Chewables) venlafaxine 150 mg 150 mg PO QAM #90 caps 04/25/22 11/21/22 Unknown capsule,extended release 24 hr (Effexor XR) cholecalciferol (vitamin D3) 25 25 mcg PO QAM 11/21/22 11/21/22 Unknown mcg (1,000 unit) capsule cyanocobalamin (vitamin B-12) 1,000 mcg PO QAM 11/21/22 11/21/22 Unknown 1,000 mcg tablet (Vitamin B-12) ferrous sulfate 325 mg (65 mg 325 mg PO Q2D 11/21/22 11/21/22 Unknown iron) tablet (Iron (ferrous sulfate)) lisinopril 20 mg tablet 10 mg PO QAM 11/21/22 11/21/22 Unknown Past Medical History Medical History (Updated 11/24/22 @ 14:29 by Isabella Badillo PA-C) Anxiety Depression History of blood transfusion intra-op TKA History of colonic polyps History of hemolysis, elevated liver enzymes, and low platelet (HELLP) syndrome 2018 HTN (hypertension) controlled, stable per pt Hx of gastric ulcer Hx of ovarian cancer 09/2021, sx. only, no other tx. Morbid obesity Patient denies h/o stroke, seizures, heart attack, heart failure, or DM. Exercise / Class Metabolic Activity II 4-5 Yardwork/Stairs/Walk up hill (denies chest discomfort or shortness of breath with 1 FOS) Past Family History Family History Mother Breast cancer Father Heart disease Myocardial infarction Grandmother (Maternal) Breast cancer Denies family history of Ovarian cancer Prostate cancer Colorectal cancer Past Surgical History Surgical History History of esophagogastroduodenoscopy (EGD) History of hysteroscopy Hx of Achilles tendon repair LEFT x3 Hx of cervical discectomy ROM "is good" Hx of colonoscopy 2021 Hx of gastric bypass 2005 [facility], Slim-en-Y Hx of total hysterectomy with removal of both tubes and ovaries + appendectomy; cervix remains Status post total left knee replacement Past Anesthesia History No Hx of Anesthesia Complications and No Family Hx of Anesthesia Complications History of PONV No Hx of PONV and No Hx of Motion Sickness Social History Smoking Status: Former smoker Do You Dip or Chew Tobacco: No Smoking End Date: teenage years only Hx Alcohol Use: Yes Alcohol type: wine and hard liquor alcohol intake frequency: holidays/special occasions only Hx Substance Use: No substance use type: does not use Review of Systems Dry cough ongoing since starting lisinopril without change or worsening. Patient denies chest pain, shortness of breath, dyspnea on exertion, snoring, witnessed apneas, fever, chills, wheezing, or palpitations. Physical Exam Vital Signs Vitals BP 144/85 P 62 TEMP 98 SP02 99% on RA RESP 18 Physical Patient resting comfortably in chair in no acute distress, alert and oriented, responding appropriately throughout visit Full cervical extension range of motion without pain TMD 3.5 finger breadths Mallampati Score 2 Dentition: right permanent upper bridge, denies chipped or loose teeth, caps/crowns, or implants Lungs: normal respiratory effort. Good air movement, clear throughout to auscultation, no adventitious breath sounds Cardiac: regular rate and rhythm, no murmurs noted Carotid arteries: negative bruit bilat Lab Results Anesthesia Preop Results Results Anesthesia Widget: WBC 5.13 K/ul (4.8-10.8) 11/24/22 Hgb 12.9 g/dl (12.0-16.0) 11/24/22 Hct 37.6 % (37.0-47.0) 11/24/22 Plt 238 K/uL (130-400) 11/24/22 Na 139 mmol/L (136-145) 11/24/22 K 4.3 mmol/L (3.5-5.1) 11/24/22 Cl 108 mmol/L (98-107) H 11/24/22 CO2 23 mmol/L (21-32) 11/24/22 BUN 21 mg/dl (6-23) 11/24/22 Creat 0.93 mg/dl (0.6-1.2) 11/24/22 Glucose Level 94 mg/dl (70-99(Fasting)) 11/24/22 PT 10.5 Seconds (9.0-12.0) 11/24/22 PTT 26.9 Seconds (21.0-31.0) 11/24/22 INR 1.0 (0.9-1.1) 11/24/22 Urine Color Yellow 11/24/22 Urine Appearance Clear (Clear) 11/24/22 Urine pH 5.0 (4.5-7.5) 11/24/22 Urine Specific [place] 1.013 (1.000-1.030) 11/24/22 Urine Protein Negative (Negative) 11/24/22 Urine Glucose (UA) Negative (Negative) 11/24/22 Urine Ketones Negative (Negative) 11/24/22 Urine Blood Negative (Negative) 11/24/22 Urine Nitrite Negative (Negative) 11/24/22 Urine Bilirubin Negative (Negative) 11/24/22 Urine Urobilinogen Negative (Negative) 11/24/22 Urine Leukocyte Esterase Negative (Negative) 11/24/22 Blood Type A Positive 08/31/23 Antibody Screen NEGATIVE 11/24/22 Testing Electrocardiogram Date: 11/24/22 Sinus bradycardia, rate 58 bpm [id number] Chest X-Ray Date: 11/24/22 No active disease in the chest
[~2022-12-07 06:22] MED LIST: BUPIVACAINE 0.5 % 5 MG/1 ML PF 10ML VIAL ONE; LR 500ML BOLUS, THEN 15ML/HR IV SCH; LR 60ML/HR IV SCH; ROPIVACAINE 0.5% HCL/PF 150 MG, BUPIVACAINE 0.75% MPF 20 ML, EPINEPHrine 0.15 MG, Ketor... INFIL SCH; TRANEXAMIC ACID 1,000 MG **IV Pre-op IV SCH; ceFAZolin 2000MG 2,000 MG/15 ML SYR IV SCH
[2022-12-07] MEDS ORDERED: BUPIVACAINE 0.25% PF 30 ML VIAL ONE (06:23)
--- NOTE | 2022-12-07 06:29 | History & Physical Bridge Note ---
Date of Service December 07, 2022 History & Physical Bridge Note I have examined the patient, reviewed the History & Physical and in the interval since the performance of the History & Physical I have noted the following changes of clinical significance: no changes noted
--- NOTE | 2022-12-07 06:30 | History & Physical Bridge Note ---
Date of Service December 07, 2022 History & Physical Bridge Note I have examined the patient, reviewed the History & Physical and in the interval since the performance of the History & Physical I have noted the following changes of clinical significance:consent and site verified. no changes noted
[2022-12-07] MEDS ORDERED: PROPOFOL IV EMULSION 10 MG/ML 20 ML VIAL IV ONE (07:14)
[2022-12-07] MEDS ORDERED: fentaNYL citrate PF 100 MCG/2 ML VIAL ONE (07:14)
[2022-12-07] MEDS ORDERED: LIDOCAINE 2% 2 ML VIAL/AMP(20MG/ML) INFIL ONE (07:14)
[2022-12-07] MEDS ORDERED: MIDAZOLAM HCL 1 MG/ML 2ML VIAL ONE ×2 (07:14→09:03)
[2022-12-07] MEDS ORDERED: ONDANSETRON INJ 2 MG/ML 2 ML VIAL IV PRN (08:00)
[2022-12-07] MEDS ORDERED: ePHEDrine sulfate 50 MG/ML AMP IV PRN (08:00)
[2022-12-07] MEDS ORDERED: ATROPINE SULFATE 0.1 MG/ML 10ML SYR IV PRN (08:00)
[2022-12-07] MEDS ORDERED: fentaNYL citrate PF 100 MCG/2 ML VIAL IV PRN (08:00)
[2022-12-07] MEDS ORDERED: ORTHO JOINT ANESTHETIC ONE (08:27)
--- NOTE | 2022-12-07 10:11 | Post Operative Brief Note ---
Immediate Post Op Note v1 Date of Surgery December 07, 2022 Pre & Post Diagnosis Osteoarthritis right knee Operation Date: 12/07/22 08:50 <No data on this case meets the specified criteria> I identified the patient and participated in the time-out.: Yes Procedure Cemented left total knee replacement Operation Date: 12/07/22 08:50 <No data on this case meets the specified criteria> Surgeon Lucien Muro MD Motorcycle Mechanic Tracie/Kenzie Estimated Blood Loss 100 Findings Consistent with Post-Op Diagnosis Lateral compartment 50% grade 4 posterior half tibial plateau posterior half lateral femoral condyle grade 4 central area medial femoral condyle medial tibial plateau grade 3 central trochlea Fluids 1500 cc Complications None
--- NOTE | 2022-12-07 10:16 | Operative Report ---
Post Operative Report Pre & Post Diagnosis Operation Date: 12/07/22 08:50 <No data on this case meets the specified criteria> I identified the patient and participated in the time-out.: Yes Procedure Operation Date: 12/07/22 08:50 <No data on this case meets the specified criteria> Cemented right total knee replacement Surgeon Lucien Muro MD Road Tester Tracie/Kenzie Estimated Blood Loss 100 Findings Consistent with Post-Op Diagnosis Severe DJD lateral compartment 50% lateral tibial plateau weightbearing surface central area lateral femoral condyle grade 4 disease central area of medial femoral condyle and medial tibial plateau grade 3 through 4 disease central trochlea Fluids 1500 cc Specimens Bone pathology Drains None Complications None Indications Severe right knee pain failed conservative management including multiple years of injections. Advanced osteoarthritis by x-ray Description of Procedure Patient appropriately identified site verified consent verified antibiotics confirmed as being given the right lower extremity was prepped and draped in usual routine fashion. The tourniquet was inflated to 275 mmHg for exsanguination of the limb with a rubber band for total of 46 minutes. Midline exposure was utilized parapatellar neurotomy performed synovectomy completed osteophytes around the femur resected. Osteophytes in the notch resected. Distal femur entered. Cruciates resected. Tibia subluxated menisci resected. Distal tibia resected 12 mm proximal tibia 4 mm the extension gap was excellent. The femur was sized between a 2-1/2 and a 2 was measured 2 and half cut 2-1/2 was excellent cut. Flexion gap was checked and was excellent. The box cut was then completed. A size 2-1/2 it well. Size 2 and half tibial baseplate was then seated and impacted into position and the reaming carried out trial reduction with a 10 mm spacer was excellent. Tibial resection was roughly 4 mm from the high side. The patella tracked well. Patella was relatively small we put a 38.1 Trial and was seated relatively well with some minor medial overhang. Signals were then made and patella tracked well. The knee was then injected with Ortho mix throughout including the posterior capsule that was irrigated with Betadine Pulsavac and then a permanent cemented in position tibia femur patella in that order a 12 minutes the tourniquet deflated at 14 minutes the knee was flexed there was no cement removal required was no major bleeding the trial spacer was removed there was irrigated with Betadine Pulsavac permanent liner seated the knee reduced and closed in 40 degrees of flexion with #2 Vicryl 2-0 Vicryl and standstill clips appropriate dressing applied patient transferred recovery in satisfactory condition he tolerated procedure well. Summary of implants TXCOMuy J&J rotating platform knee size 2 and half posterior cruciate substituting size 2 and half tibial tray size 2 and a posterior 2 substituting spacer 10 mm thick all the bone through 5 patella size 38. 2 bags of Pal[place]os G cement. Bone pathology pending. DVT prophylaxis per protocol. I attest to the content of the Intraoperative Record and any orders documented therein. Any exceptions are noted below.
[2022-12-07] MEDS ORDERED: ePHEDrine sulfate 50 MG/ML AMP ONE (10:17)
[2022-12-07] MEDS ORDERED: ONDANSETRON INJ 2 MG/ML 2 ML VIAL ONE (10:17)
--- NOTE | 2022-12-07 10:19 | Orthopedic Progress Note ---
Date of Service December 07, 2022 Orthopedic Progress Note Status post cemented right total knee replacement resting comfortably denies chest pain shortness of fever chills nausea vomiting or headache. Vital signs are stable she is afebrile. Neurovascular check femoral sciatic nerve limited by spinal. Wound dressing clean dry and intact. X-ray pending. Assessment doing well continue care pathway discharge PT OT tomorrow DVT prophylaxis per protocol.
--- NOTE | 2022-12-07 10:19 | Discharge Summary ---
Date of Service December 08, 2022 Admission HPI Per Admitting Provider s/p r tka Admission Exam Per Admitting Provider nerves /wound intact xrays look good Principal Diagnosis Status post right total knee replacement Discharge Data Allergies Allergy/AdvReac Type Severity Reaction Status Date / Time warfarin Allergy stomach Verified 12/07/22 06:41 ulcer adhesive tape AdvReac Unknown skin Verified 12/07/22 06:41 irritation Vaccinations None Consultations None Procedures Performed s/p r tka on 12/07/2022 Operation Date: 12/07/22 08:50 <No data on this case meets the specified criteria> Ordered Studies 12/07/22 05:00 US - OR guided needle placemen Routine Hospital Course (1) S/P total knee arthroplasty: Plan Continue care pathway for total knee replacement right knee. Total Time Total Time Spent Total Time Spent (In Minutes): 5 minutes Discharge Plan Discharge Items Patient Disposition: Home - Home Health Services Reason For Visit: Right Knee Degenerative Joint Disease Discharge Diagnosis: Right knee s/p total knee replacement Condition on Discharge: Good Activity: Per Instructions section Lifting: Wait until after follow-up appointment Bathing: Keep incision dry Sexual Activity: Wait until after follow-up appointment Exercise/Sports: Wait until after follow-up appointment Driving/Machine Use: No driving until cleared by Dr. Muro Weightbearing: Full weightbearing Non-emergency contact: Surgeon Call non-emergency contact if: you have any medication questions, your pain is not controlled, your temperature is above 101.5, your wound has increased redness, your wound has increased drainage and your wound pain has increased Follow-up/Referrals: Stephanie Lopes DO [Primary Care Provider] - Diet: Regular Addtl Attending Provider Instructions: New Medicine: * You will likely be taking one or more of these medications: 1. Percocet - Take, as directed, when you need it, every four to six hours to control your pain. 2. Iron Sulfate - Take 1 time each day for the month after surgery to help you replace the blood lost during surgery. 3. Eliquis - Thins your blood to lessen the chance of forming a blood clot. * The most common side effects of pain medicine and iron are nausea and constipation. If nausea or constipation is too much of a problem or if you have any questions about your new medicines or doses, call [facility] at . We will try to help you manage these issues. "VERY IMPORTANT TO READ AND REVIEW" Blood Clots and Blood Thinning Medicine: * You are given Eliquis during the immediate post-operative period to lessen the risk of blood clots forming in your legs and/or lungs. It is usually given for six weeks after surgery. * The prescription is for 2 mg tablets. At discharge, you should understand your dose and take it all at the same time every day, preferably after dinner. Pain: * The immediate post-operative period after knee replacement surgery is often quite painful. * You are given a prescription for pain medicine. You should take it, as directed, when you need it, especially before physical therapy and before going to bed. Pain that interferes with sleep is very common and can last several months. * You will likely need pain medicine for the first four to six weeks. It will not stop all of the pain. The pain will lessen and as you feel better, you may change to milder pain medicine such as Tylenol. * The most common side effects of pain medicine are nausea and constipation, so don't take more than you need. Physical Therapy: * You will have physical therapy two or three times each week for four to six weeks after your surgery in order to regain your knee range of motion and to retrain your knee to work properly. * It is just as important to make sure you are getting your knee perfectly straight as it is to regain your knee bend. * Taking a pain pill an hour before therapy can help you have a more productive and comfortable therapy session if needed. Home Exercise: * You were shown a series of exercises (heel props, heel slides, etc.) in the hospital. Do these exercises three to four times each day including the exercises you were shown in physical therapy. Walking: * Get up and walk several times each day. For the first four weeks, try not to stand or walk for more than one hour at a time. If you do stand or walk for more than one hour, you will not hurt anything, but your knee and leg will likely swell. * As you feel comfortable, you may change from the walker or crutches to a cane and then to independent walking. SELF CARE INSTRUCTIONS AFTER TOTAL KNEE REPLACEMENT A. You may need to continue a physical therapy program after discharge from the hospital. There are several options available to you. Your doctor will assist you in selecting the best one for you. 1. An out-patient facility 2 to 3 times a week for therapy or home therapy. 2. Continue working on all exercises taught to you in the hospital. Your goals should be to increase bending of your knee to 90 degrees and beyond and to fully straighten your knee. B. You may progress at your own pace from walking with a walker or crutches to a cane; then to no assistive devices. C. Make walking a part of your daily routine. Be up as much as comfortable with rest periods throughout the day. Rest with leg elevation is very important. Use the ice wrap frequently for the first 3-4 weeks. D. There are no restrictions on activities. You may ride in a car, shop, participate in preparation center coordinator and all social activities. E. Wear the long elastic stockings (EMY hose) 20 hours a day for six weeks after surgery. They can be removed several times a day for laundering and for a shower. F. Do not place a pillow behind your knee when resting. A pillow at your ankle is okay. VERY IMPORTANT TO READ AND REVIEW A. Take Eliquis (blood thinning medication) as directed by your doctor. B. There are a few signs you need to watch for after you are home. Call [facility] if you notice any of the followin. Increased severe knee pain. Some pain is expected especially when you exercise. 2. Increased swelling in your leg or knee; pain or swelling of the calf muscle in either lower leg. 3. Any fluid drainage from the incision. 4. Shortness of breath or chest pain. C. Please call [facility] at if you have any concerns or questions about your operation or recovery. The doctor or his nurse will return your call promptly. D. You must take antibiotics before dental work, bladder, bowel or other surgery. Call the office to obtain a prescription at least 2 days prior to your appointment. * CALL IF INCREASED PAIN, REDNESS, DRAINAGE OR FEVER GREATER THAT 101. * Sutures should be removed 12-14 days after surgery unless you are on chronic steroids, then it will be 14-18 days after surgery. Call your doctor if: * Temperature above 101 degrees F. * Pain not relieved by pain medicine ordered. * Increased drainage or redness from incision. * Notify your doctor with any questions or concerns. Use your walker for ambulation Use the knee immobilizer when out of bed on and Monday. It can be discontinued entirely on Monday morning. Leave the dressings in place through the weekend. They can be changed on Monday if needed for soiling. Keep the bandages dry. Pending Studies at Discharge: Yes (Bone pathology) Studies:: bone pathology Stand-Alone Forms: My [facility], Smoking Cessation Medications and DC Order Prescriptions: No Action venlafaxine [Effexor XR] 150 mg capsule,extended release 24hr 150 mg PO QAM Qty: 90 3RF Centrum Chewables 8 mg-400 mcg- 10 mcg Tablet,Chewable 2 tab PO QAM cyanocobalamin (vitamin B-12) [Vitamin B-12] 1,000 mcg Tablet 1,000 mcg PO QAM ferrous sulfate [Iron (ferrous sulfate)] 325 mg (65 mg iron) Tablet 325 mg PO Q2D lisinopril 20 mg tablet 10 mg PO QAM cholecalciferol (vitamin D3) 25 mcg (1,000 unit) capsule 25 mcg PO QAM Admission Data Admit Date/Time: 12/07/22 10:43 Attending Provider: Lucien Muro Admit Provider: Lucien Muro Primary Care Provider: Stephanie Lopes-Pia Knee Pain s/p r knee TKA doing well.
--- NOTE | 2022-12-07 10:33 | Operative Report ---
Post Operative Report Pre & Post Diagnosis Operation Date: 12/07/22 08:50 Pre-Op Diagnosis: Right Knee Degenerative Joint Disease Post-Op Diagnosis: Right Knee Degenerative Joint Disease I identified the patient and participated in the time-out.: Yes Procedure Operation Date: 12/07/22 08:50 Actual Procedures p Right Total Knee Arthroplasty(Right) - Lucien Muro MD Surgeon Lucien Muro MD Ladle Watcher Tracie/Kenzie Estimated Blood Loss 100 Findings Consistent with Post-Op Diagnosis Same as postoperative diagnosis Specimens None Description of Procedure see detailed operative note I attest to the content of the Intraoperative Record and any orders documented therein. Any exceptions are noted below.
--- NOTE | 2022-12-07 10:58 | XRay Report ---
XR knee RT 1 or 2V routine HISTORY: 67 years-old Female S/P R TKA right knee arthroplasty COMPARISON: 08/01/2022 TECHNIQUE: 2 views of the right knee FINDINGS: Total joint arthroplasty with patellar resurfacing. Anterior midline skin eddie with expected posto perative soft tissue swelling and deep tissue air. No acute fracture or unexpected opaque foreign bod y. IMPRESSION: Total joint arthroplasty with expected postoperative changes. ACT 112: Negative or not required by law. The above report was generated using voice recognition software. It may contain grammatical, syntax o r spelling errors. Electronically signed by: Aydin Pickett M.D. 12/07/2022 10:57 AM
[2022-12-07] MEDS ORDERED: VANCOMYCIN CONSULT ACTIVE PRN (11:33)
[2022-12-07] MEDS ORDERED: NALOXONE HCL 0.4 MG/1 ML VIAL/CARP IV PRN (11:33)
[2022-12-07] MEDS ORDERED: bisacodyL 10 MG SUPP PR PRN (11:33)
[2022-12-07] MEDS ORDERED: oxyCODONE HCL IR 5 MG TAB (IMMEDIATE RELEASE) PO PRN ×2 (11:33)
[2022-12-07] MEDS ORDERED: MAGNESIUM HYDROXIDE SUSP 30 ML UDC PO PRN (11:33)
[2022-12-07] MEDS ORDERED: KETOROLAC 30 MG/ML VIAL ONE (11:33)
[2022-12-07] MEDS ORDERED: HYDROmorphone INJ 0.5 MG/0.5 ML SYR IV PRN (11:33)
[2022-12-07] MEDS ORDERED: NON-FORMULARY MEDICATION (Ferrous Sulfate [Iron (Ferrous Sulfate)] 325 mg (65 mg iron) Tab PO SCH (11:33)
[2022-12-07] MEDS ORDERED: SODIUM CHLORIDE 0.9% 1,000 ML IV SCH ×2 (11:33)
--- NOTE | 2022-12-07 13:46 | Anesthesiology Progress Note ---
Date of Service December 07, 2022 Anesthesia Post Procedure Vital Signs Vital Signs: Temp Pulse Pulse Resp BP BP Pulse Ox 12/07/22 13:25 36.4 C L 62 18 118/76 100 12/07/22 11:25 36 C L 60 18 124/82 98 12/07/22 12:34 64 18 123/74 99 12/07/22 11:56 72 18 126/71 100 12/07/22 11:25 12/07/22 11:10 63 16 121/76 100 12/07/22 11:00 36.4 C L 65 20 141/67 H 96 12/07/22 10:50 69 18 136/71 100 12/07/22 10:40 68 20 129/82 100 12/07/22 10:30 71 16 128/81 100 12/07/22 10:22 36.0 C L 74 16 119/73 99 12/07/22 06:44 36.5 C 75 21 142/90 H 98 O2 Del Method O2 Flow Rate 12/07/22 13:25 Room Air 12/07/22 11:25 Room Air 12/07/22 12:34 Room Air 12/07/22 11:56 Room Air 12/07/22 11:25 Room Air 12/07/22 11:10 Room Air 12/07/22 11:00 Room Air 12/07/22 10:50 Room Air 12/07/22 10:40 Oxymask 4 12/07/22 10:30 Oxymask 4 12/07/22 10:22 Oxymask 6 12/07/22 06:44 Room Air Pain Intensity Right Knee: Pain Intensity: 4 Transfer of Care Handoff Completed per policy Notes Mental Status: alert / awake / arousable and participated in evaluation Patient Amnestic to Procedure: Yes Nausea / Vomiting: adequately controlled Pain: adequately controlled Airway Patency, RR, SpO2: stable & adequate BP & HR: stable & adequate Hydration State: stable & adequate Neuraxial Anesthesia: was administered and sensory block is resolving Anesthetic Complications: no major complications apparent and Pt Satisfied with anesthetic care
[2022-12-07] MEDS: ACETAMINOPHEN 500 MG TAB PO SCH ×2 (13:50→22:30)
[2022-12-07] MEDS ORDERED: ORTHO WARFARIN NOMOGRAM SCH (14:00)
--- NOTE | 2022-12-07 15:22 | Operative Report ---
Post Operative Report Pre & Post Diagnosis Operation Date: 12/07/22 08:50 Pre-Op Diagnosis: Right Knee Degenerative Joint Disease Post-Op Diagnosis: Right Knee Degenerative Joint Disease I identified the patient and participated in the time-out.: Yes Procedure Operation Date: 12/07/22 08:50 Actual Procedures p Right Total Knee Arthroplasty(Right) - Lucien Muro MD Surgeon TANISHA Muro MD Tail Ripper Tracie/Kenzie HWANG Estimated Blood Loss 100 Findings Consistent with Post-Op Diagnosis see operative report Specimens see operative report Drains none Complications none Disposition Accompanied Patient To Recovery: Yes Indications This 67 year old female presented to the office complaints of persisting right knee pain. She had tried conservative care measures without improvement. She elected to proceed with surgical intervention after being educated about potential risks and outcomes. Preoperative imaging was obtained. Description of Procedure The patient was administered a spinal anesthetic and then taken to the operating room where she was given sedation. She was prepped and draped in the usual sterile fashion. Please see Dr. Muro's operative report for specifics of the procedure. I was present for the entire case from initial patient positioning through final wound closure. Assistance was provided in tissue retraction, hemostasis, trial implant placement, final implant placement, and final wound closure. The patient was taken to the recovery room in satisfactory condition. I attest to the content of the Intraoperative Record and any orders documented therein. Any exceptions are noted below.
[2022-12-07] MEDS ORDERED: TRANEXAMIC ACID / 0.7% NACL 1,000 MG/100 ML BAG IV SCH (16:30)
[2022-12-07] MEDS: FERROUS GLUCONATE 324 MG TAB PO SCH (17:23)
[2022-12-07] MEDS: ASCORBIC ACID 500 MG TAB PO SCH (17:23)
[2022-12-07] MEDS: ceFAZolin 2000MG 2,000 MG/15 ML SYR IV SCH (17:24)
[2022-12-07] MEDS: DOCUSATE SODIUM 100 MG CAP PO SCH (20:36)
[2022-12-07] MEDS ORDERED: VANCOMYCIN HCL 1,500 MG in SODIUM CHLORIDE 0.9% 500 ML IV SCH (20:45)
[2022-12-07] MEDS ORDERED: SENNA 8.6 MG TAB PO SCH (21:00)
[2022-12-08] MEDS: ceFAZolin 2000MG 2,000 MG/15 ML SYR IV SCH (01:12)
[2022-12-08] MEDS: ACETAMINOPHEN 500 MG TAB PO SCH (05:56)
--- NOTE | 2022-12-08 06:30 | Orthopedic Progress Note ---
Date of Service December 08, 2022 Assessment & Plan (1) S/P total knee arthroplasty: Plan Continue care pathway for total knee replacement right knee. Admission and Anticipated Discharge Date Admission Date: December 07, 2022 Orthopedic Progress Note Postop day #1 status post right total knee replacement. Patient is sitting up in her chair relatively comfortable. She denies chest pain shortness of breath fever chills nausea or headache. Vital signs are stable she is afebrile. Neurovascular check from sciatic nerve is normal. Can do a straight leg raise. Can do ankle pumps. Calves are nontender. Can flex to about 60 degrees. Assessment status post total knee replacement right lower extremity. A.m. labs are pending but everything looks good clinically. She be discharged home today after PT OT and dressing change. Follow-up in 2 weeks. Status post cemented right total knee replacement resting comfortably denies chest pain shortness of fever chills nausea vomiting or headache. Vital signs are stable she is afebrile. Neurovascular check femoral sciatic nerve limited by spinal. Wound dressing clean dry and intact. X-ray pending. Assessment doing well continue care pathway discharge PT OT tomorrow DVT prophylaxis per protocol.
--- NOTE | 2022-12-08 06:40 | Operative Report ---
Post Operative Report Procedure Date: December 08, 2022 Pre & Post Diagnosis: Severe osteoarthritis right knee preop diagnosis Postop diagnosis same Status post cemented right total knee replacement. [] Time Out: I identified the patient and participated in the time-out. Procedure: Cemented right total knee replacement] Surgeon: Kahlil] Annealing Furnace Tender: [Tracie/Kenzie] Estimated Blood Loss: [See previous report] Findings: [See previous report] Specimens: [See previous report] Description of Procedure: See previous report [] Attestation: I attest to the content of the Intraoperative Record and any orders documented therein. Any exceptions are noted below.
[2022-12-08] MEDS ORDERED: dexAMETHasone 10 MG in SYRINGE 0 ML IV SCH (08:00)
[2022-12-08] MEDS: DOCUSATE SODIUM 100 MG CAP PO SCH (08:08)
[2022-12-08] MEDS: ASCORBIC ACID 500 MG TAB PO SCH (08:09)
[2022-12-08] MEDS: FERROUS GLUCONATE 324 MG TAB PO SCH (08:09)
[2022-12-08 08:22] LABS: Hematocrit (blood only) 32.8 % (37.0-47.0); Hemoglobin 10.9 g/dl (12.0-16.0); Mean Corpuscular Hemoglobin 30.5 pg (25.0-34.0); Mean Corpuscular Hgb Conc 33.2 g/dL (32.0-36.0); Mean Corpuscular Volume 91.9 fL (80.0-100.0); Mean Platelet Volume 11.4 fL (9.4-12.4); Platelet Count 197 K/uL (130-400); RDW Coefficient of Variation 13.2 % (11.5-14.5); RDW Standard Deviation 44.6 fL (36.4-46.3); Red Blood Count 3.57 M/uL (4.20-5.40); White Blood Count 9.38 K/ul (4.8-10.8)
[2022-12-08 08:25] LABS: BUN Creatinine Ratio 26.5 (10-20); Calcium 8.3 mg/dl (8.6-10.3); Creatinine Clr Calc Pharmacy 60.3 ml/min; Est GFR (African American) 69.2 ml/min; Est GFR (Non-African American) 59.7 ml/min; Potassium 3.9 mmol/L (3.5-5.1)
[2022-12-08] MEDS ORDERED: MULTIVITAMIN TAB PO SCH (09:00)
[2022-12-08] MEDS ORDERED: CYANOCOBALAMIN (B-12) 500 MCG TABLET PO SCH (09:00)
[2022-12-08] MEDS ORDERED: lisinopril 10 MG TAB PO SCH (09:00)
[2022-12-08] MEDS ORDERED: APIXABAN 2.5 MG TAB PO SCH (09:00)
[2022-12-08] MEDS ORDERED: CHOLECALCIFEROL 1,000 UNITS 25 MCG TAB PO SCH (09:00)
[2022-12-08] MEDS ORDERED: [UNRECOGNIZED DRUG - OTHER] PO SCH (09:00)
[2022-12-08] MEDS ORDERED: VENLAFAXINE HCL XR 150 MG CAPXR PO SCH (09:00)
--- NOTE | 2022-12-08 09:15 | Orthopedic Progress Note ---
Date of Service December 08, 2022 Assessment & Plan (1) S/P total knee arthroplasty: Plan: Patient's dressings were changed today by me. She can leave these in place until Monday and have them changed at that point if needed for swelling. Continue using her knee immobilizer today and tomorrow. It may be discontinued on Monday morning. The patient requested Tylenol with codeine for pain control. Prescription was sent to her pharmacy. She started her Eliquis this morning. Continue twice a day for the next 6 weeks. Written discharge instructions were provided. Follow-up in the office in 2 weeks as scheduled for staple removal. Call the office with any other concerns. Admission and Anticipated Discharge Date Admission Date: December 07, 2022 Subjective This 67-year-old female seen today in her room. She states she did well overnight. She has no pain. She denies any chest pain, shortness of breath, nausea, vomiting, or abdominal pain. She was out of bed last evening to go to the bathroom. She has walked in the [place] this morning with PT. She feels ready for discharge to home. No other complaints. Review of Systems Review of Systems: Unchanged from yesterday. Physical Exam Physical Exam: General: Well-developed, well-nourished, middle-aged female, in no acute distress. Sitting in bed. Alert and oriented. Conversive. Skin: Warm and dry with good turgor. No rashes. Patient has her postsurgical dressings in place on the right knee. Upon removal, there is scant dried blood on the inner dressings. [place] are intact. Wound edges are well approximated. No erythema or warmth. Expected postoperative edema. No ecchymosis. No active drainage. Musculoskeletal: Patient has intact motor function of her ankle and toes. She is able to set her quad. She can do a straight leg raise with minimal assistance. Full terminal extension. Flexion to 45 degrees without much difficulty. Neurologic: Gross sensation is intact across the right leg by soft touch. Results & Data Vital Signs (Past 12 Hours) Vital Signs Temp Pulse Resp BP Pulse Ox O2 Del Method 12/08/22 07:44 36.4 C L 63 16 94/65 L 99 Room Air 12/08/22 02:55 37 C 69 18 127/74 96 Room Air 12/07/22 23:35 36.6 C 63 18 129/84 100 Room Air Laboratory Results CBC obtained this morning shows WBC of 9.38, hemoglobin 10.9 hematocrit 32.8, platelets 197,000. Sodium 140, potassium 3.9, chloride 109, CO2 26, BUN 26, creatinine 0.98. Glucose 102.
== END 2022-12-08 11:08 | disposition home or self-care (01) ==
LOC: 3E 06:22 → ASU 06:22